=== PATIENT | female | born 1965 | race Two or more races ===

== ENCOUNTER 2017-03-03 16:42 | Inpatient (IN) | payer OTHER ==
[~2017-03-03] VITALS: Ht 157.5 cm; Wt 84.7 kg
[2017-03-03 17:53] LABS: INTER. NORMALIZED RATIO 2.2; PROTHROMBIN TIME 24.8 SEC (10.2-12.9)
[2017-03-03 17:56] LABS: HEMATOCRIT 21.8 % (36.0-46.0); MCH 42.5 PG (29.0-34.0); MCHC 34.9 G/DL (30.0-36.0); MCV 121.8 FL (83-99); NRBC (%) 1.4 /100 WBC (0-0); RBC DIS.WIDTH-SD 73.2 % (39-53); RED BLOOD COUNT 1.79 M/uL (3.80-5.20); WHITE BLOOD COUNT 5.8 K/uL (4.1-10.2)
[2017-03-03 17:56] LABS: PTT 42.6 SEC (25-37)
[2017-03-03 17:57] LABS: CHLORIDE 82 mEq/L (99-109); SODIUM 124 mEq/L (136-147)
[2017-03-03 17:58] LABS: POTASSIUM 2.4 mEq/L (3.7-5.4)
[2017-03-03 17:59] LABS: GLUCOSE 98 mg/dL (70-99)
[2017-03-03 18:01] LABS: ANION GAP 14 MEQ/L (2-14); TOTAL BILIRUBIN 11.1 mg/dL (0.0-1.0)
[2017-03-03 18:03] LABS: ALKALINE PHOSPHATASE 89 IU/L (3-129); GFR ESTIMATE (CALCULATED) > 59 mL/min/
[2017-03-03 18:04] LABS: UREA NITROGEN (BUN) 25 mg/dL (9-23)
[2017-03-03 18:06] LABS: LIPASE 76 U/L (1.0-51.0)
[2017-03-03] MEDS ORDERED: FLONASE16 G1 BOTH NARES (19:08)
[2017-03-03] MEDS ORDERED: COMBIVENT RESPIM4 GM IH (19:08)
[2017-03-03] MEDS ORDERED: LEXAPRO10 MG PO (19:08)
[2017-03-03] MEDS ORDERED: CLARITIN,ALAVAR10 MG PO (19:08)
[2017-03-03 19:19] LABS: IMM.PLATELET FRACTION 4.8 (1-7); MEAN PLAT.VOLUME 10.9 uM^3 (9.5-12.4); PLAT.SUFFICIENCY VERY DECREASED; PLATELET COUNT 50 K/uL (156-360)
[2017-03-03 21:56] VITALS: BP 124/69
[2017-03-03 22:13] VITALS: BP 119/65
[2017-03-03 22:36] VITALS: BP 133/62
[2017-03-03 23:13] VITALS: BP 133/62
[2017-03-04] VITALS (8 sets, daily range): BP systolic 115–134; BP diastolic 55–64
[2017-03-04 09:57] LABS: PROTHROMBIN TIME 22.7 SEC (10.2-12.9)
[2017-03-04 10:01] LABS: PTT 42.6 SEC (25-37)
[2017-03-04 10:04] LABS: HEMATOCRIT 25.2 % (36.0-46.0); MCHC 33.7 G/DL (30.0-36.0); RBC DIS.WIDTH-CV 24.2 % (11.8-14.6); WHITE BLOOD COUNT 5.2 K/uL (4.1-10.2)
[2017-03-04 10:09] LABS: MCV 115.6 FL (83-99); RED BLOOD COUNT 2.18 M/uL (3.80-5.20)
[2017-03-04 10:26] LABS: ANION GAP 10 MEQ/L (2-14); CHLORIDE 88 MEQ/L (99-109); SAMPLE HEMOLYSIS CHECK 0; SAMPLE ICTERIC CHECK 2; SAMPLE LIPEMIA CHECK 0; SODIUM 123 MEQ/L (136-147); TOTAL BILIRUBIN 10.8 MG/DL (0.0-1.0)
[2017-03-04 10:27] LABS: POTASSIUM 3.5 MEQ/L (3.7-5.4)
[2017-03-04 10:32] LABS: ALKALINE PHOSPHATASE 76 IU/L (3-129); GFR ESTIMATE (CALCULATED) > 59 mL/min/; GLUCOSE 84 mg/dL (70-99); UREA NITROGEN (BUN) 21 mg/dL (9-23)
[2017-03-04 11:05] LABS: MEAN PLAT.VOLUME 10.8 uM^3 (9.5-12.4); PLAT.SUFFICIENCY DECREASED; PLATELET COUNT 42 K/uL (156-360)
[2017-03-04 12:52] LABS: HEMATOCRIT 25.1 % (36.0-46.0); MCV 117.3 FL (83-99)
[2017-03-05] VITALS (11 sets, daily range): BP systolic 104–127; BP diastolic 52–68
[2017-03-05 01:01] LABS: HEMATOCRIT 21.2 % (36.0-46.0); MCV 113.4 FL (83-99)
[2017-03-05 05:59] LABS: HEMATOCRIT 25.2 % (36.0-46.0); MCHC 33.7 G/DL (30.0-36.0); MCV 109.6 FL (83-99); NRBC (%) 0.9 /100 WBC (0-0); WHITE BLOOD COUNT 5.4 K/uL (4.1-10.2)
[2017-03-05 06:32] LABS: ANISOCYTOSIS 1+; BASOPHIL COUNT 0.1 K/uL (0-0.1); BURR CELLS 1+; EOSINOPHIL COUNT 0.2 K/uL (0-0.3); IMM.PLATELET FRACTION 3.6 (1-7); IMMATURE GRANULOCYTE (%) 0.9 % (0.0-0.7); IMMATURE GRANULOCYTE COUNT 0.1 K/uL; INSTRUMENT ABS NEUTROPHIL CT 2.2 K/uL; MACROCYTES 3+; MEAN PLAT.VOLUME 10.1 uM^3 (9.5-12.4); MONOCYTE (%) 16.2 % (3-12); MONOCYTE COUNT 0.9 K/uL (0-0.8); NEUTROPHIL (%) 41.3 % (45-76); NEUTROPHIL COUNT 2.2 K/uL (1.8-6.4); PLAT.SUFFICIENCY VERY DECREASED; PLATELET COUNT 34 K/uL (156-360); POLYCHROMASIA 2+
[2017-03-05 10:55] LABS: AHBS INDEX 0.01; HEPATITIS B SURFACE ANTIBODY Nonreactive
[2017-03-05 11:14] LABS: HBSG INDEX 0.22
[2017-03-05 11:15] LABS: ANTI-HEPATITIS A VIRUS (IGM) Nonreactive; HAV INDEX 0.44
[2017-03-05 11:17] LABS: ANTI-HEPATITIS B CORE (IGM) Nonreactive; HBC IgM INDEX 0.23
[2017-03-05 11:25] LABS: HPCA INDEX 11.81
[2017-03-05 12:37] LABS: MCV 109.2 FL (83-99)
[2017-03-05 13:07] LABS: ANION GAP 9 MEQ/L (2-14); CHLORIDE 89 MEQ/L (99-109); GFR ESTIMATE (CALCULATED) > 59 mL/min/; GLUCOSE 172 mg/dL (70-99); POTASSIUM 3.2 MEQ/L (3.7-5.4); SAMPLE HEMOLYSIS CHECK 0; SAMPLE ICTERIC CHECK 2; SAMPLE LIPEMIA CHECK 0; SODIUM 124 MEQ/L (136-147); UREA NITROGEN (BUN) 13 mg/dL (9-23)
[2017-03-05 14:00] LABS: ALKALINE PHOSPHATASE 99 IU/L (3-129); DIRECT BILIRUBIN 5.5 mg/dL (0.0-0.3); TOTAL BILIRUBIN 11.4 MG/DL (0.0-1.0)
[2017-03-05 15:31] LABS: INTER. NORMALIZED RATIO 1.8; PROTHROMBIN TIME 20.7 SEC (10.2-12.9)
[2017-03-05 18:35] LABS: MCV 109.6 FL (83-99)
[2017-03-06 00:57] LABS: HEMATOCRIT 24.7 % (36.0-46.0); MCV 108.8 FL (83-99)
[2017-03-06 04:39] VITALS: BP 114/54
[2017-03-06 05:58] LABS: INTER. NORMALIZED RATIO 1.9; PROTHROMBIN TIME 21.5 SEC (10.2-12.9)
[2017-03-06 06:14] LABS: HEMATOCRIT 25.1 % (36.0-46.0); MCV 110.1 FL (83-99)
[2017-03-06 06:36] LABS: ALKALINE PHOSPHATASE 99 IU/L (3-129); ANION GAP 8 MEQ/L (2-14); CHLORIDE 92 MEQ/L (99-109); GFR ESTIMATE (CALCULATED) > 59 mL/min/; GLUCOSE 122 mg/dL (70-99); POTASSIUM 3.5 MEQ/L (3.7-5.4); SAMPLE HEMOLYSIS CHECK 0; SAMPLE ICTERIC CHECK 2; SAMPLE LIPEMIA CHECK 0; SODIUM 127 MEQ/L (136-147); TOTAL BILIRUBIN 11.2 MG/DL (0.0-1.0); UREA NITROGEN (BUN) 9 mg/dL (9-23)
[2017-03-06 07:31] VITALS: BP 115/74
[2017-03-06 11:21] VITALS: BP 126/58
[2017-03-06 12:24] LABS: HEMATOCRIT 25.9 % (36.0-46.0); MCV 111.2 FL (83-99)
[2017-03-06 15:52] VITALS: BP 107/55
[2017-03-06 18:32] LABS: HEMATOCRIT 25.8 % (36.0-46.0); MCV 111.7 FL (83-99)
[2017-03-06 19:47] VITALS: BP 126/59
[2017-03-07] VITALS (9 sets, daily range): BP systolic 85–133; BP diastolic 45–63
[2017-03-07 08:38] LABS: HEMATOCRIT 22.8 % (36.0-46.0); MCH 40.2 PG (29.0-34.0); MCV 111.8 FL (83-99); MEAN PLAT.VOLUME 10.1 uM^3 (9.5-12.4); NRBC (%) 0.7 /100 WBC (0-0); RED BLOOD COUNT 2.04 M/uL (3.80-5.20); WHITE BLOOD COUNT 8.9 K/uL (4.1-10.2)
[2017-03-07 08:45] LABS: PLATELET COUNT 70 K/uL (156-360)
[2017-03-07 08:53] LABS: INTER. NORMALIZED RATIO 1.7; PROTHROMBIN TIME 19.8 SEC (10.2-12.9)
[2017-03-07 09:14] LABS: ALKALINE PHOSPHATASE 83 IU/L (3-129); ANION GAP 8 MEQ/L (2-14); CHLORIDE 91 MEQ/L (99-109); GFR ESTIMATE (CALCULATED) > 59 mL/min/; GLUCOSE 95 mg/dL (70-99); POTASSIUM 3.6 MEQ/L (3.7-5.4); SAMPLE HEMOLYSIS CHECK 0; SAMPLE ICTERIC CHECK 2; SAMPLE LIPEMIA CHECK 0; SODIUM 125 MEQ/L (136-147); TOTAL BILIRUBIN 10.9 MG/DL (0.0-1.0); UREA NITROGEN (BUN) 12 mg/dL (9-23)
[2017-03-07 09:35] LABS: EOSINOPHIL (%) 1.6 % (0-5); EOSINOPHIL COUNT 0.1 K/uL (0-0.3); IMMATURE GRANULOCYTE (%) 1.3 % (0.0-0.7); IMMATURE GRANULOCYTE COUNT 0.1 K/uL; INSTRUMENT ABS NEUTROPHIL CT 5.3 K/uL; LYMPHOCYTE COUNT 2.3 K/uL (1.0-2.8); MONOCYTE (%) 11.4 % (3-12); NEUTROPHIL (%) 59.1 % (45-76); NEUTROPHIL COUNT 5.3 K/uL (1.8-6.4)
[2017-03-07 10:52] LABS: TYPE OF FLUID PARACENTESIS
[2017-03-07 11:12] LABS: BODY FLUID RBC'S ND /MM^3 (0-100); BODY FLUID WBC'S ND /MM^3 (0-500)
[2017-03-07 11:41] LABS: MONONUCLEAR WBC'S 91 %; POLYNUCLEAR WBC'S 9 % (0-25)
[2017-03-07 11:57] LABS: BODY FLUID PROTEIN < 3.0 G/DL
[2017-03-07 23:55] LABS: POINT-OF-CARE METER ID UU13113725
[2017-03-08] VITALS (46 sets, daily range): BP systolic 70–959; BP diastolic 37–596
[2017-03-08 00:05] LABS: HEMATOCRIT 19.1 % (36.0-46.0); MCH 39.8 PG (29.0-34.0); MCHC 34.6 G/DL (30.0-36.0); MCV 115.1 FL (83-99); NRBC (%) 0.8 /100 WBC (0-0); PLATELET COUNT 84 K/uL (156-360); RBC DIS.WIDTH-CV 25.1 % (11.8-14.6); RED BLOOD COUNT 1.66 M/uL (3.80-5.20)
[2017-03-08 00:06] LABS: INTER. NORMALIZED RATIO 1.9; PROTHROMBIN TIME 21.9 SEC (10.2-12.9)
[2017-03-08 00:08] LABS: PTT 39.2 SEC (25-37)
[2017-03-08 00:22] LABS: POTASSIUM 3.3 mEq/L (3.7-5.4); SODIUM 126 mEq/L (136-147)
[2017-03-08 00:25] LABS: ANION GAP 13 MEQ/L (2-14)
[2017-03-08 00:28] LABS: GFR ESTIMATE (CALCULATED) > 59 mL/min/; UREA NITROGEN (BUN) 14 mg/dL (9-23)
[2017-03-08 00:30] LABS: CHLORIDE 92 mEq/L (99-109); GLUCOSE 119 mg/dL (70-99)
[2017-03-08 01:35] LABS: METH RESISTANT S AUREUS PCR NEGATIVE (NEGATIVE)
[2017-03-08 01:36] LABS: PROBE CHECK PASS; SPECIMEN PROCESSING CONTROL PASS
[2017-03-08 08:53] LABS: INTER. NORMALIZED RATIO 1.3; PROTHROMBIN TIME 15.4 SEC (10.2-12.9)
[2017-03-08 08:56] LABS: PTT 31.3 SEC (25-37)
[2017-03-08 09:03] LABS: ANION GAP 9 MEQ/L (2-14); CHLORIDE 94 MEQ/L (99-109); MAGNESIUM 1.5 mg/dl (1.3-2.7); POTASSIUM 3.4 MEQ/L (3.7-5.4); SAMPLE HEMOLYSIS CHECK 0; SAMPLE ICTERIC CHECK 2; SAMPLE LIPEMIA CHECK 0; SODIUM 129 MEQ/L (136-147)
[2017-03-08 09:08] LABS: GFR ESTIMATE (CALCULATED) > 59 mL/min/; GLUCOSE 123 mg/dL (70-99); UREA NITROGEN (BUN) 14 mg/dL (9-23)
[2017-03-08 10:12] LABS: EOSINOPHIL (%) 1.7 % (0-5); EOSINOPHIL COUNT 0.1 K/uL (0-0.3); HEMATOCRIT 23.9 % (36.0-46.0); IMMATURE GRANULOCYTE (%) 1.3 % (0.0-0.7); IMMATURE GRANULOCYTE COUNT 0.1 K/uL; INSTRUMENT ABS NEUTROPHIL CT 3.6 K/uL; LYMPHOCYTE COUNT 1.5 K/uL (1.0-2.8); MCH 33.3 PG (29.0-34.0); MCHC 34.7 G/DL (30.0-36.0); MONOCYTE (%) 11.1 % (3-12); MONOCYTE COUNT 0.7 K/uL (0-0.8); NEUTROPHIL (%) 60.7 % (45-76); NEUTROPHIL COUNT 3.6 K/uL (1.8-6.4); NRBC (%) 0.5 /100 WBC (0-0); RBC DIS.WIDTH-CV 20.8 % (11.8-14.6); RBC DIS.WIDTH-SD 52.3 % (39-53)
[2017-03-08 10:13] LABS: RED BLOOD COUNT 2.49 M/uL (3.80-5.20)
[2017-03-08 10:51] LABS: MEAN PLAT.VOLUME 11.2 uM^3 (9.5-12.4); PLAT.SUFFICIENCY DECREASED
[2017-03-08 11:10] LABS: POINT-OF-CARE METER ID UU14174217
[2017-03-08 12:03] LABS: PLATELET COUNT 52 K/uL (156-360)
[2017-03-08 12:15] LABS: MITOCHONDRIAL (M2) ANTIBODIES+ <=20.0 U (<=20.0)
[2017-03-08 12:40] LABS: ANTI-SMOOTH MUSCLE (Actin)+ <20 U (<20)
[2017-03-08 18:38] LABS: EOSINOPHIL (%) 2.1 % (0-5); EOSINOPHIL COUNT 0.2 K/uL (0-0.3); HEMATOCRIT 23.3 % (36.0-46.0); IMMATURE GRANULOCYTE (%) 1.1 % (0.0-0.7); IMMATURE GRANULOCYTE COUNT 0.1 K/uL; INSTRUMENT ABS NEUTROPHIL CT 4.6 K/uL; LYMPHOCYTE COUNT 1.6 K/uL (1.0-2.8); MCH 33.6 PG (29.0-34.0); MCHC 35.2 G/DL (30.0-36.0); MCV 95.5 FL (83-99); MONOCYTE COUNT 0.9 K/uL (0-0.8); NEUTROPHIL (%) 62.5 % (45-76); NEUTROPHIL COUNT 4.6 K/uL (1.8-6.4); NRBC (%) 0.3 /100 WBC (0-0); RBC DIS.WIDTH-CV 21.4 % (11.8-14.6); RBC DIS.WIDTH-SD 55.9 % (39-53); RED BLOOD COUNT 2.44 M/uL (3.80-5.20); WHITE BLOOD COUNT 7.3 K/uL (4.1-10.2)
[2017-03-08 19:10] LABS: HEMATOLOGY COMMENT 1 SN; IMM.PLATELET FRACTION 2.2 (1-7); MEAN PLAT.VOLUME 9.3 uM^3 (9.5-12.4); PLAT.SUFFICIENCY DECREASED; PLATELET COUNT 41 K/uL (156-360)
[2017-03-08 22:07] LABS: HCV RNA (IU/mL) 3740 IU/mL (<15)
[2017-03-09] VITALS (15 sets, daily range): BP systolic 105–131; BP diastolic 59–74
[2017-03-09 05:23] LABS: BASOPHIL COUNT 0.1 K/uL (0-0.1); EOSINOPHIL (%) 3.1 % (0-5); EOSINOPHIL COUNT 0.2 K/uL (0-0.3); HEMATOCRIT 23.9 % (36.0-46.0); IMMATURE GRANULOCYTE (%) 0.9 % (0.0-0.7); IMMATURE GRANULOCYTE COUNT 0.1 K/uL; INSTRUMENT ABS NEUTROPHIL CT 2.9 K/uL; LYMPHOCYTE COUNT 1.7 K/uL (1.0-2.8); MCHC 34.7 G/DL (30.0-36.0); MONOCYTE (%) 14.7 % (3-12); MONOCYTE COUNT 0.8 K/uL (0-0.8); NEUTROPHIL (%) 51.1 % (45-76); NEUTROPHIL COUNT 2.9 K/uL (1.8-6.4); NRBC (%) 0.5 /100 WBC (0-0); RBC DIS.WIDTH-CV 22.3 % (11.8-14.6); RBC DIS.WIDTH-SD 58.7 % (39-53); RED BLOOD COUNT 2.44 M/uL (3.80-5.20); WHITE BLOOD COUNT 5.7 K/uL (4.1-10.2)
[2017-03-09 05:50] LABS: ANION GAP 6 MEQ/L (2-14); CHLORIDE 99 MEQ/L (99-109); GFR ESTIMATE (CALCULATED) > 59 mL/min/; GLUCOSE 94 mg/dL (70-99); POTASSIUM 3.5 MEQ/L (3.7-5.4); SAMPLE HEMOLYSIS CHECK 0; SAMPLE ICTERIC CHECK 2; SAMPLE LIPEMIA CHECK 0; SODIUM 131 MEQ/L (136-147); UREA NITROGEN (BUN) 12 mg/dL (9-23)
[2017-03-09 05:51] LABS: IMM.PLATELET FRACTION 2.5 (1-7); MEAN PLAT.VOLUME 9.9 uM^3 (9.5-12.4); PLAT.SUFFICIENCY VERY DECREASED; PLATELET COUNT 35 K/uL (156-360)
[2017-03-09 08:39] LABS: HCV RNA (LOG IU/mL) 3.57 (<1.18)
[2017-03-09 10:44] LABS: ALKALINE PHOSPHATASE 75 IU/L (3-129); DIRECT BILIRUBIN 3.5 mg/dL (0.0-0.3); MAGNESIUM 1.5 mg/dl (1.3-2.7)
[2017-03-09 10:45] LABS: TOTAL BILIRUBIN 7.5 MG/DL (0.0-1.0)
[2017-03-09 19:53] LABS: HEMATOCRIT 24.7 % (36.0-46.0); MCH 32.9 PG (29.0-34.0); MCHC 33.6 G/DL (30.0-36.0); RBC DIS.WIDTH-CV 22.2 % (11.8-14.6); RBC DIS.WIDTH-SD 63.7 % (39-53); RED BLOOD COUNT 2.52 M/uL (3.80-5.20); WHITE BLOOD COUNT 6.2 K/uL (4.1-10.2)
[2017-03-09 20:19] LABS: IMM.PLATELET FRACTION 2.2 (1-7); MEAN PLAT.VOLUME 10.2 uM^3 (9.5-12.4); PLAT.SUFFICIENCY VERY DECREASED; PLATELET COUNT 40 K/uL (156-360)
[2017-03-10] VITALS (14 sets, daily range): BP systolic 99–115; BP diastolic 47–60
[2017-03-10 05:40] LABS: EOSINOPHIL (%) 2.8 % (0-5); EOSINOPHIL COUNT 0.2 K/uL (0-0.3); HEMATOCRIT 21.5 % (36.0-46.0); IMMATURE GRANULOCYTE (%) 0.7 % (0.0-0.7); INSTRUMENT ABS NEUTROPHIL CT 2.7 K/uL; LYMPHOCYTE COUNT 2.2 K/uL (1.0-2.8); MCH 34.6 PG (29.0-34.0); MCHC 34.9 G/DL (30.0-36.0); MCV 99.1 FL (83-99); MONOCYTE (%) 15.7 % (3-12); NEUTROPHIL (%) 44.6 % (45-76); NEUTROPHIL COUNT 2.7 K/uL (1.8-6.4); RBC DIS.WIDTH-CV 22.9 % (11.8-14.6); RED BLOOD COUNT 2.17 M/uL (3.80-5.20); WHITE BLOOD COUNT 6.1 K/uL (4.1-10.2)
[2017-03-10 06:03] LABS: ALKALINE PHOSPHATASE 66 IU/L (3-129); ANION GAP 5 MEQ/L (2-14); CHLORIDE 102 MEQ/L (99-109); GFR ESTIMATE (CALCULATED) > 59 mL/min/; GLUCOSE 109 mg/dL (70-99); POTASSIUM 3.7 MEQ/L (3.7-5.4); SAMPLE HEMOLYSIS CHECK 0; SAMPLE ICTERIC CHECK 2; SAMPLE LIPEMIA CHECK 0; SODIUM 131 MEQ/L (136-147); TOTAL BILIRUBIN 6.8 MG/DL (0.0-1.0); UREA NITROGEN (BUN) 10 mg/dL (9-23)
[2017-03-10 06:27] LABS: IMM.PLATELET FRACTION 2.2 (1-7); MEAN PLAT.VOLUME 10.2 uM^3 (9.5-12.4); PLAT.SUFFICIENCY VERY DECREASED; PLATELET COUNT 37 K/uL (156-360)
[2017-03-10 06:46] LABS: ANION GAP 5 MEQ/L (2-14); CHLORIDE 101 MEQ/L (99-109); GFR ESTIMATE (CALCULATED) > 59 mL/min/; GLUCOSE 105 mg/dL (70-99); MAGNESIUM 1.3 mg/dl (1.3-2.7); POTASSIUM 3.7 MEQ/L (3.7-5.4); SAMPLE HEMOLYSIS CHECK 0; SAMPLE ICTERIC CHECK 2; SAMPLE LIPEMIA CHECK 0; SODIUM 129 MEQ/L (136-147); UREA NITROGEN (BUN) 10 mg/dL (9-23)
[2017-03-10 08:17] LABS: BASE EXCESS -0.3 mEq/L (-3 to +3); BICARBONATE 22.6 mEq/L (22-26); CARBOXY HGB 3.2 % (0-5); PCO2 29 mm Hg (35-45); PO2 66 mm Hg (80-100); SITE LR
[2017-03-10 08:18] LABS: COMMENTS - BLOOD GASES A+C+; TOTAL RESP RATE 14 resp/min
[2017-03-10 18:25] LABS: HEMATOCRIT 20.2 % (36.0-46.0); MCV 99.5 FL (83-99)
[2017-03-11 00:51] LABS: HEMATOCRIT 22.6 % (36.0-46.0)
[2017-03-11 00:57] LABS: MCV 94.2 FL (83-99)
[2017-03-11 05:53] LABS: BASOPHIL COUNT 0.1 K/uL (0-0.1); EOSINOPHIL (%) 3.4 % (0-5); EOSINOPHIL COUNT 0.2 K/uL (0-0.3); HEMATOCRIT 23.4 % (36.0-46.0); IMMATURE GRANULOCYTE (%) 0.3 % (0.0-0.7); INSTRUMENT ABS NEUTROPHIL CT 2.8 K/uL; LYMPHOCYTE COUNT 2.1 K/uL (1.0-2.8); MCH 31.5 PG (29.0-34.0); MCHC 33.3 G/DL (30.0-36.0); MCV 94.4 FL (83-99); MONOCYTE COUNT 0.9 K/uL (0-0.8); NEUTROPHIL (%) 45.8 % (45-76); NEUTROPHIL COUNT 2.8 K/uL (1.8-6.4); RBC DIS.WIDTH-CV 20.3 % (11.8-14.6); RBC DIS.WIDTH-SD 48.7 % (39-53); RED BLOOD COUNT 2.48 M/uL (3.80-5.20); WHITE BLOOD COUNT 6.1 K/uL (4.1-10.2)
[2017-03-11 05:58] LABS: PLATELET COUNT 54 K/uL (156-360)
[2017-03-11 06:03] LABS: INTER. NORMALIZED RATIO 1.6; PROTHROMBIN TIME 18.9 SEC (10.2-12.9)
[2017-03-11 06:30] LABS: ALKALINE PHOSPHATASE 64 IU/L (3-129); ANION GAP 6 MEQ/L (2-14); CHLORIDE 103 MEQ/L (99-109); GFR ESTIMATE (CALCULATED) > 59 mL/min/; GLUCOSE 108 mg/dL (70-99); POTASSIUM 3.8 MEQ/L (3.7-5.4); SAMPLE HEMOLYSIS CHECK 0; SAMPLE ICTERIC CHECK 2; SAMPLE LIPEMIA CHECK 0; SODIUM 132 MEQ/L (136-147); TOTAL BILIRUBIN 7.3 MG/DL (0.0-1.0); UREA NITROGEN (BUN) 11 mg/dL (9-23)
[2017-03-11 07:49] VITALS: BP 109/52
[2017-03-11 16:46] VITALS: BP 112/56
[2017-03-11 19:30] VITALS: BP 110/55
[2017-03-11 20:05] LABS: HEMATOCRIT 22.6 % (36.0-46.0); MCV 96.6 FL (83-99)
[2017-03-12] VITALS (11 sets, daily range): BP systolic 92–112; BP diastolic 50–56
[2017-03-12 06:46] LABS: EOSINOPHIL COUNT 0.2 K/uL (0-0.3); HEMATOCRIT 20.4 % (36.0-46.0); IMMATURE GRANULOCYTE (%) 0.5 % (0.0-0.7); INSTRUMENT ABS NEUTROPHIL CT 2.6 K/uL; MCH 33.3 PG (29.0-34.0); MCHC 34.3 G/DL (30.0-36.0); MCV 97.1 FL (83-99); MONOCYTE (%) 15.7 % (3-12); MONOCYTE COUNT 0.9 K/uL (0-0.8); NEUTROPHIL (%) 44.9 % (45-76); NEUTROPHIL COUNT 2.6 K/uL (1.8-6.4); RBC DIS.WIDTH-CV 21.7 % (11.8-14.6); RBC DIS.WIDTH-SD 57.1 % (39-53); WHITE BLOOD COUNT 5.8 K/uL (4.1-10.2)
[2017-03-12 07:01] LABS: INTER. NORMALIZED RATIO 1.6; PROTHROMBIN TIME 18.1 SEC (10.2-12.9)
[2017-03-12 07:16] LABS: ANION GAP 7 MEQ/L (2-14); CHLORIDE 103 MEQ/L (99-109); GFR ESTIMATE (CALCULATED) > 59 mL/min/; GLUCOSE 111 mg/dL (70-99); POTASSIUM 3.9 MEQ/L (3.7-5.4); SAMPLE HEMOLYSIS CHECK 0; SAMPLE ICTERIC CHECK 2; SAMPLE LIPEMIA CHECK 0; SODIUM 132 MEQ/L (136-147); UREA NITROGEN (BUN) 10 mg/dL (9-23)
[2017-03-12 07:55] LABS: ANISOCYTOSIS 2+; BURR CELLS 1+; HEMATOLOGY COMMENT 1 SN; IMM.PLATELET FRACTION 1.9 (1-7); MACROCYTES 2+; MEAN PLAT.VOLUME 10.1 uM^3 (9.5-12.4); PLAT.SUFFICIENCY DECREASED; PLATELET COUNT 40 K/uL (156-360); POIKILOCYTOSIS 1+; POLYCHROMASIA 1+
[2017-03-12 19:47] LABS: HEMATOCRIT 17.9 % (36.0-46.0); MCV 97.8 FL (83-99)
[2017-03-13] VITALS (13 sets, daily range): BP systolic 98–140; BP diastolic 50–86
[2017-03-13 08:04] LABS: BASOPHIL COUNT 0.1 K/uL (0-0.1); EOSINOPHIL COUNT 0.2 K/uL (0-0.3); HEMATOCRIT 28.2 % (36.0-46.0); IMMATURE GRANULOCYTE COUNT 0.1 K/uL; INSTRUMENT ABS NEUTROPHIL CT 2.6 K/uL; LYMPHOCYTE COUNT 2.2 K/uL (1.0-2.8); MCH 33.3 PG (29.0-34.0); MCHC 33.7 G/DL (30.0-36.0); MCV 98.9 FL (83-99); MONOCYTE (%) 15.2 % (3-12); MONOCYTE COUNT 0.9 K/uL (0-0.8); NEUTROPHIL (%) 42.9 % (45-76); NEUTROPHIL COUNT 2.6 K/uL (1.8-6.4); NRBC (%) 0.3 /100 WBC (0-0); RBC DIS.WIDTH-CV 19.8 % (11.8-14.6); WHITE BLOOD COUNT 6.1 K/uL (4.1-10.2)
[2017-03-13 08:06] LABS: RED BLOOD COUNT 2.85 M/uL (3.80-5.20)
[2017-03-13 08:15] LABS: ANION GAP 8 MEQ/L (2-14); CHLORIDE 102 MEQ/L (99-109); GFR ESTIMATE (CALCULATED) > 59 mL/min/; GLUCOSE 95 mg/dL (70-99); POTASSIUM 3.8 MEQ/L (3.7-5.4); SAMPLE HEMOLYSIS CHECK 0; SAMPLE ICTERIC CHECK 2; SAMPLE LIPEMIA CHECK 0; SODIUM 130 MEQ/L (136-147); UREA NITROGEN (BUN) 9 mg/dL (9-23)
[2017-03-13 08:42] LABS: IMM.PLATELET FRACTION 2.4 (1-7); MEAN PLAT.VOLUME 10.4 uM^3 (9.5-12.4); PLATELET COUNT 31 K/uL (156-360)
[2017-03-13 09:06] LABS: INTER. NORMALIZED RATIO 1.6
[2017-03-14 04:22] VITALS: BP 120/56
[2017-03-14 06:32] LABS: BASOPHIL COUNT 0.1 K/uL (0-0.1); EOSINOPHIL (%) 2.3 % (0-5); EOSINOPHIL COUNT 0.1 K/uL (0-0.3); HEMATOCRIT 28.1 % (36.0-46.0); IMMATURE GRANULOCYTE (%) 0.7 % (0.0-0.7); INSTRUMENT ABS NEUTROPHIL CT 2.6 K/uL; LYMPHOCYTE COUNT 2.1 K/uL (1.0-2.8); MCH 32.5 PG (29.0-34.0); MCHC 33.1 G/DL (30.0-36.0); MCV 98.3 FL (83-99); MONOCYTE (%) 11.5 % (3-12); MONOCYTE COUNT 0.7 K/uL (0-0.8); NEUTROPHIL (%) 46.6 % (45-76); NEUTROPHIL COUNT 2.6 K/uL (1.8-6.4); RBC DIS.WIDTH-CV 19.9 % (11.8-14.6); RBC DIS.WIDTH-SD 59.9 % (39-53); RED BLOOD COUNT 2.86 M/uL (3.80-5.20); WHITE BLOOD COUNT 5.7 K/uL (4.1-10.2)
[2017-03-14 07:00] VITALS: BP 109/60
[2017-03-14 07:47] VITALS: BP 109/60
[2017-03-14 10:15] LABS: IMM.PLATELET FRACTION 3.9 (1-7); MEAN PLAT.VOLUME 10.6 uM^3 (9.5-12.4); PLATELET COUNT 30 K/uL (156-360)
[2017-03-14 14:46] VITALS: BP 107/56
[2017-03-14 15:45] VITALS: BP 115/59
[2017-03-14 23:24] VITALS: BP 108/58
[2017-03-15 06:26] LABS: HEMATOCRIT 26.9 % (36.0-46.0); MCHC 33.8 G/DL (30.0-36.0); MCV 100.4 FL (83-99); RBC DIS.WIDTH-CV 21.2 % (11.8-14.6); RED BLOOD COUNT 2.68 M/uL (3.80-5.20); WHITE BLOOD COUNT 5.1 K/uL (4.1-10.2)
[2017-03-15 06:32] LABS: INTER. NORMALIZED RATIO 1.7; PROTHROMBIN TIME 19.9 SEC (10.2-12.9)
[2017-03-15 06:56] LABS: ALKALINE PHOSPHATASE 92 IU/L (3-129); ANION GAP 7 MEQ/L (2-14); BASOPHIL COUNT 0.1 K/uL (0-0.1); CHLORIDE 103 MEQ/L (99-109); EOSINOPHIL (%) 2.8 % (0-5); EOSINOPHIL COUNT 0.1 K/uL (0-0.3); GFR ESTIMATE (CALCULATED) > 59 mL/min/; GLUCOSE 95 mg/dL (70-99); IMMATURE GRANULOCYTE (%) 0.6 % (0.0-0.7); INSTRUMENT ABS NEUTROPHIL CT 2.1 K/uL; LYMPHOCYTE COUNT 2.1 K/uL (1.0-2.8); MONOCYTE (%) 11.7 % (3-12); MONOCYTE COUNT 0.6 K/uL (0-0.8); NEUTROPHIL (%) 42.1 % (45-76); NEUTROPHIL COUNT 2.1 K/uL (1.8-6.4); PLAT.SUFFICIENCY VERY DECREASED; POTASSIUM 3.9 MEQ/L (3.7-5.4); SAMPLE HEMOLYSIS CHECK 0; SAMPLE ICTERIC CHECK 1; SAMPLE LIPEMIA CHECK 0; SODIUM 134 MEQ/L (136-147); UREA NITROGEN (BUN) 8 mg/dL (9-23)
[2017-03-15 06:57] LABS: TOTAL BILIRUBIN 5.1 MG/DL (0.0-1.0)
[2017-03-15 07:51] LABS: MEAN PLAT.VOLUME 10.7 uM^3 (9.5-12.4); PLATELET COUNT 27 K/uL (156-360)
[2017-03-15 08:47] VITALS: BP 110/57
[2017-03-15 10:52] LABS: IMM.PLATELET FRACTION 3.3 (1-7)
[2017-03-15 16:30] VITALS: BP 108/59
[2017-03-15 17:07] VITALS: BP 107/51
[2017-03-15 21:23] VITALS: BP 120/72
[2017-03-16 03:31] VITALS: BP 110/61
[2017-03-16 08:27] VITALS: BP 119/59
[2017-03-16 08:53] LABS: EOSINOPHIL (%) 2.8 % (0-5); EOSINOPHIL COUNT 0.1 K/uL (0-0.3); HEMATOCRIT 25.3 % (36.0-46.0); IMMATURE GRANULOCYTE (%) 0.6 % (0.0-0.7); LYMPHOCYTE COUNT 1.1 K/uL (1.0-2.8); MCH 33.3 PG (29.0-34.0); MCHC 32.8 G/DL (30.0-36.0); MCV 101.6 FL (83-99); MONOCYTE (%) 10.4 % (3-12); MONOCYTE COUNT 0.4 K/uL (0-0.8); NEUTROPHIL (%) 55.3 % (45-76); RBC DIS.WIDTH-CV 21.4 % (11.8-14.6); RBC DIS.WIDTH-SD 73.7 % (39-53); RED BLOOD COUNT 2.49 M/uL (3.80-5.20); WHITE BLOOD COUNT 3.6 K/uL (4.1-10.2)
[2017-03-16 09:15] LABS: IMM.PLATELET FRACTION 3.2 (1-7); MEAN PLAT.VOLUME 11.4 uM^3 (9.5-12.4); PLAT.SUFFICIENCY VERY DECREASED; PLATELET COUNT 25 K/uL (156-360)
[2017-03-16 11:45] VITALS: BP 115/62
[2017-03-16 15:48] VITALS: BP 107/57
[2017-03-16 20:15] VITALS: BP 119/57
[2017-03-17] VITALS (8 sets, daily range): BP systolic 97–177; BP diastolic 47–69
[2017-03-17 06:44] LABS: EOSINOPHIL (%) 2.3 % (0-5); EOSINOPHIL COUNT 0.1 K/uL (0-0.3); HEMATOCRIT 24.7 % (36.0-46.0); IMMATURE GRANULOCYTE (%) 0.2 % (0.0-0.7); INSTRUMENT ABS NEUTROPHIL CT 2.9 K/uL; LYMPHOCYTE COUNT 1.6 K/uL (1.0-2.8); MCH 34.3 PG (29.0-34.0); MCV 100.8 FL (83-99); MONOCYTE (%) 9.5 % (3-12); MONOCYTE COUNT 0.5 K/uL (0-0.8); NEUTROPHIL (%) 55.9 % (45-76); NEUTROPHIL COUNT 2.9 K/uL (1.8-6.4); RBC DIS.WIDTH-CV 21.6 % (11.8-14.6); RBC DIS.WIDTH-SD 75.3 % (39-53); RED BLOOD COUNT 2.45 M/uL (3.80-5.20); WHITE BLOOD COUNT 5.2 K/uL (4.1-10.2)
[2017-03-17 07:08] LABS: ALKALINE PHOSPHATASE 77 IU/L (3-129); ANION GAP 6 MEQ/L (2-14); CHLORIDE 100 MEQ/L (99-109); GFR ESTIMATE (CALCULATED) > 59 mL/min/; GLUCOSE 105 mg/dL (70-99); SAMPLE HEMOLYSIS CHECK 0; SAMPLE ICTERIC CHECK 1; SAMPLE LIPEMIA CHECK 0; SODIUM 131 MEQ/L (136-147); TOTAL BILIRUBIN 4.3 MG/DL (0.0-1.0); UREA NITROGEN (BUN) 5 mg/dL (9-23)
[2017-03-17 07:48] LABS: IMM.PLATELET FRACTION 3.5 (1-7); MEAN PLAT.VOLUME 10.5 uM^3 (9.5-12.4)
[2017-03-17 08:24] LABS: PLATELET COUNT 21 K/uL (156-360)
[2017-03-18 06:20] LABS: EOSINOPHIL (%) 2.3 % (0-5); EOSINOPHIL COUNT 0.1 K/uL (0-0.3); HEMATOCRIT 24.7 % (36.0-46.0); IMMATURE GRANULOCYTE (%) 0.4 % (0.0-0.7); INSTRUMENT ABS NEUTROPHIL CT 2.7 K/uL; LYMPHOCYTE COUNT 1.8 K/uL (1.0-2.8); MCH 33.5 PG (29.0-34.0); MCHC 33.2 G/DL (30.0-36.0); MCV 100.8 FL (83-99); MONOCYTE (%) 8.9 % (3-12); MONOCYTE COUNT 0.5 K/uL (0-0.8); NEUTROPHIL (%) 52.1 % (45-76); NEUTROPHIL COUNT 2.7 K/uL (1.8-6.4); RBC DIS.WIDTH-CV 21.3 % (11.8-14.6); RBC DIS.WIDTH-SD 76.5 % (39-53); RED BLOOD COUNT 2.45 M/uL (3.80-5.20); WHITE BLOOD COUNT 5.2 K/uL (4.1-10.2)
[2017-03-18 06:41] LABS: ANION GAP 8 MEQ/L (2-14); CHLORIDE 100 MEQ/L (99-109); GFR ESTIMATE (CALCULATED) > 59 mL/min/; GLUCOSE 113 mg/dL (70-99); POTASSIUM 3.7 MEQ/L (3.7-5.4); SAMPLE HEMOLYSIS CHECK 0; SAMPLE ICTERIC CHECK 1; SAMPLE LIPEMIA CHECK 0; SODIUM 135 MEQ/L (136-147); UREA NITROGEN (BUN) 5 mg/dL (9-23)
[2017-03-18 07:04] LABS: IMM.PLATELET FRACTION 2.5 (1-7); MEAN PLAT.VOLUME 10.6 uM^3 (9.5-12.4); PLAT.SUFFICIENCY DECREASED
[2017-03-18 07:14] LABS: PLATELET COUNT 42 K/uL (156-360)
[2017-03-18 07:50] VITALS: BP 135/69
[2017-03-18] MEDS ORDERED: Thiamine,Vitamin B1 PO (14:03)
[2017-03-18] MEDS ORDERED: PROTONIX40 MG PO (14:03)
[2017-03-18] MEDS ORDERED: ALDACTONE100 MG PO (14:03)
[2017-03-18] MEDS ORDERED: FOLIC ACID1 MG PO (14:03)
[2017-03-18] MEDS ORDERED: FUROSEMIDE40 MG PO (14:03)
[2017-03-18] MEDS ORDERED: BENTYL20 MG PO (14:05)
[2017-03-18] MEDS ORDERED: KRISTALOSE10 GM PO (14:05)
== END 2017-03-18 15:31 | disposition home or self-care (01) | DRG 987 ==
LOC: EME 16:42 → EDOF 20:05 → 4WEST 20:05 → 5EAST 20:05 → ENRESERV 20:23 → 5EAST 22:28 → ENRESERV 03-07 23:35 → 4WEST 03-07 23:37 → ENRESERV 03-09 13:30 → 5EAST 03-09 16:26
PROVIDERS: Emergency Medicine; Internal Medicine; Internal Medicine Gastroenterology; Physician Assistant; Specialist; Surgery
DX: K70.31 Alcoholic cirrhosis of liver with ascites (principal); B19.21 Unspecified viral hepatitis C with hepatic coma; K64.8 Other hemorrhoids; D64.9 Anemia, unspecified; R57.8 Other shock; E87.2 Acidosis; I85.00 Esophageal varices without bleeding; K76.6 Portal hypertension; E87.1 Hypo-osmolality and hyponatremia; D69.59 Other secondary thrombocytopenia; D68.4 Acquired coagulation factor deficiency; K70.11 Alcoholic hepatitis with ascites; E86.0 Dehydration; E87.6 Hypokalemia; F10.20 Alcohol dependence, uncomplicated; B18.2 Chronic viral hepatitis C; E86.1 Hypovolemia; K31.89 Other diseases of stomach and duodenum; K63.5 Polyp of colon; R79.89 Other specified abnormal findings of blood chemistry; R40.2410 Glasgow coma scale score 13-15, unspecified time; F41.9 Anxiety disorder, unspecified; F32.9 Major depressive disorder, single episode, unspecified; F17.200 Nicotine dependence, unspecified, uncomplicated; E66.9 Obesity, unspecified; Z68.34 Body mass index [BMI] 34.0-34.9, adult; Z90.710 Acquired absence of both cervix and uterus
CPT/HCPCS: 36600; 49083; 76705; 80048; 80048 91; 80053; 80074; 80076; 82140; 82248; 82330; 82803; 82948; 83516 90; 83605; 83690; 83735; 84100; 84157; 85014; 85018; 85025; 85025 91; 85027; 85610; 85730; 86038; 86256 90; 86706; 86850; 86900; 86901; 86920; 87040; 87522 90; 87641; 88304; 89051; 94760; 94799; 97530 GO; 97530 GP; 99202; 99281; 99285; C9113; G0480; J0131; J0610; J0696; J1170; J1940; J2060; J2250; J2354; J2405; J3010; J3430; J3480; J7030; J7040; J7050; P9016; P9017; P9035; P9037; P9047

== ENCOUNTER 2017-04-30 07:24 | Inpatient (IN) | payer OTHER ==
[2017-04-30] VITALS (13 sets, daily range): BP systolic 102–142; BP diastolic 54–77
[~2017-04-30] VITALS: Ht 157.5 cm; Wt 60.4 kg
[~2017-04-30 07:24] MED LIST: ALDACTONE100 MG PO; BENTYL20 MG PO; CLARITIN,ALAVAR10 MG PO; COMBIVENT RESPIM4 GM IH; FLONASE16 G1 BOTH NARES; FOLIC ACID1 MG PO; FUROSEMIDE40 MG PO; KRISTALOSE10 GM PO; LEXAPRO10 MG PO; PROTONIX40 MG PO; Thiamine,Vitamin B1 PO
[2017-04-30 09:19] LABS: HEMATOCRIT 15.5 % (36.0-46.0); MCH 40.3 PG (29.0-34.0); MCHC 33.5 G/DL (30.0-36.0); MCV 120.2 FL (83-99); NRBC (%) 0.5 /100 WBC (0-0); RBC DIS.WIDTH-CV 23.2 % (11.8-14.6); RBC DIS.WIDTH-SD 100.9 % (39-53); RED BLOOD COUNT 1.29 M/uL (3.80-5.20); WHITE BLOOD COUNT 5.9 K/uL (4.1-10.2)
[2017-04-30 09:20] LABS: HEMOGLOBIN 5.2 G/DL (11.9-15.5)
[2017-04-30 09:24] LABS: ALBUMIN 2.1 g/dL (3.2-4.8); CHLORIDE 99 mEq/L (99-109); POTASSIUM 3.4 mEq/L (3.7-5.4); SODIUM 130 mEq/L (136-147)
[2017-04-30 09:25] LABS: AMYLASE 49 IU/L (1-118)
[2017-04-30 09:26] LABS: GLUCOSE 114 mg/dL (70-99)
[2017-04-30 09:27] LABS: TOTAL PROTEIN 6.8 g/dL (6.4-8.3)
[2017-04-30 09:28] LABS: TOTAL BILIRUBIN 7.8 mg/dL (0.0-1.0)
[2017-04-30 09:29] LABS: SERUM ETHYL ALCOHOL 37 mg/dL
[2017-04-30 09:30] LABS: ALKALINE PHOSPHATASE 104 IU/L (3-129); CREATININE 1.2 mg/dL (0.6-1.3); GFR ESTIMATE (CALCULATED) 51 mL/min/
[2017-04-30 09:31] LABS: UREA NITROGEN (BUN) 29 mg/dL (9-23)
[2017-04-30 09:32] LABS: AST (GOT) 70 IU/L (2-34)
[2017-04-30 09:33] LABS: ALT (GPT) 31 IU/L (3-49)
[2017-04-30 09:34] LABS: LIPASE 90 U/L (1.0-51.0)
[2017-04-30 09:53] LABS: MAGNESIUM 1.2 mg/dL (1.3-2.7)
[2017-04-30 09:58] LABS: PHOSPHORUS 2.7 mg/dL (2.5-4.9)
[2017-04-30] MEDS ORDERED: FOLIC ACID1 MG PO (10:07)
[2017-04-30] MEDS ORDERED: ALDACTONE100 MG PO (10:08)
[2017-04-30 10:09] LABS: IMM.PLATELET FRACTION 1.9 (1-7); PLAT.SUFFICIENCY DECREASED; PLATELET COUNT 46 K/uL (156-360)
[2017-04-30] MEDS ORDERED: LASIX40 MG PO (10:09)
[2017-04-30] MEDS ORDERED: GENERLAC10 GM/15 M PO (10:10)
[2017-04-30] MEDS ORDERED: PROTONIX40 MG PO (10:11)
[2017-04-30] MEDS ORDERED: BENTYL20 MG PO (10:11)
[2017-04-30] MEDS ORDERED: B-1100 MG PO (10:13)
[2017-04-30 13:07] LABS: INTER. NORMALIZED RATIO 1.6
[2017-04-30 13:10] LABS: PTT 37.5 SEC (25-37)
[2017-04-30 14:01] LABS: APPEARANCE CLOUDY ((CLEAR)); BILIRUBIN MODERATE; BLOOD MODERATE; COLOR AMBER ((YELLOW)); GLUCOSE (STRIP) NEGATIVE; KETONES NEGATIVE; LEUKOCYTES NEGATIVE; NITRITE POSITIVE; PROTEIN (STRIP) 30; SPECIFIC GRAVITY 1.045 (1.000-1.030)
[2017-04-30 14:15] LABS: AMPHETAMINE NEGATIVE (500 ng/mL); BARBITURATES NEGATIVE (200 ng/mL); BENZODIAZEPINES NEGATIVE (150 ng/mL); BUPRENORPHINE NEGATIVE (10 ng/mL); COCAINE NEGATIVE (150 ng/mL); METHADONE NEGATIVE (200 ng/mL); METHAMPHETAMINE NEGATIVE (500 ng/mL); OPIATES (MORPHINE) NEGATIVE (100 ng/mL); OXYCODONE NEGATIVE (100 ng/mL); PHENCYCLIDINE NEGATIVE (25 ng/mL); PROPOXYPHENE NEGATIVE (300 ng/mL); THC CANNABINOIDS NEGATIVE (50 ng/mL); TRICYCLIC ANTIDEPRESSANTS NEGATIVE (300 ng/mL)
[2017-04-30 14:21] LABS: BACTERIA 3+ /HPF; HYALINE CASTS 0-5 /LPF
[2017-04-30 14:22] LABS: EPITHELIAL CELLS 2+ /HPF; MUCUS NONE SEEN /LPF; UCUL ADDED? YES
[2017-04-30 14:51] LABS: ICTOTEST NEGATIVE
[2017-05-01] VITALS (12 sets, daily range): BP systolic 87–128; BP diastolic 49–79
[2017-05-01 06:00] LABS: BASOPHIL COUNT 0.1 K/uL (0-0.1); EOSINOPHIL (%) 7.4 % (0-5); EOSINOPHIL COUNT 0.5 K/uL (0-0.3); HEMATOCRIT 23.7 % (36.0-46.0); IMM.PLATELET FRACTION 1.6 (1-7); IMMATURE GRANULOCYTE (%) 1.5 % (0.0-0.7); LYMPHOCYTE (%) 26.7 % (15-42); LYMPHOCYTE COUNT 1.6 K/uL (1.0-2.8); MCH 34.8 PG (29.0-34.0); MCHC 34.2 G/DL (30.0-36.0); MONOCYTE (%) 8.4 % (3-12); MONOCYTE COUNT 0.5 K/uL (0-0.8); NEUTROPHIL COUNT 3.4 K/uL (1.8-6.4); NRBC (%) 0.8 /100 WBC (0-0); PLATELET COUNT 41 K/uL (156-360); RBC DIS.WIDTH-CV 27.1 % (11.8-14.6); RBC DIS.WIDTH-SD 88.2 % (39-53); WHITE BLOOD COUNT 6.1 K/uL (4.1-10.2)
[2017-05-01 06:02] LABS: HEMOGLOBIN 8.1 G/DL (11.9-15.5); INTER. NORMALIZED RATIO 1.7; MCV 101.7 FL (83-99); RED BLOOD COUNT 2.33 M/uL (3.80-5.20)
[2017-05-01 06:29] LABS: ALBUMIN 2.2 G/DL (3.2-4.8); ALKALINE PHOSPHATASE 82 IU/L (3-129); ALT (GPT) 27 IU/L (3-49); AST (GOT) 61 IU/L (2-34); CHLORIDE 99 MEQ/L (99-109); CREATININE 1.6 MG/DL (0.6-1.3); GFR ESTIMATE (CALCULATED) 36 mL/min/; GLUCOSE 118 mg/dL (70-99); SODIUM 130 MEQ/L (136-147); TOTAL BILIRUBIN 8.5 MG/DL (0.0-1.0); TOTAL PROTEIN 6.4 G/DL (6.4-8.3); UREA NITROGEN (BUN) 33 mg/dL (9-23)
[2017-05-01 06:31] LABS: POTASSIUM 4.7 MEQ/L (3.7-5.4)
[2017-05-01 17:48] LABS: TYPE OF FLUID PARACENTESIS
[2017-05-01 18:28] LABS: APPEARANCE SL. HAZY-YELLOW; BODY FLUID EOSINOPHILS 0 % (0-25); BODY FLUID RBC'S < 1000 /MM^3 (0-100); BODY FLUID WBC'S 129 /MM^3 (0-500); COMMENT MANY MESOTHELIAL CELLS NOTED; MONONUCLEAR WBC'S 84 %; POLYNUCLEAR WBC'S 16 % (0-25)
[2017-05-01 18:41] LABS: BODY FLUID AMYLASE 10 U/L; BODY FLUID LDH 60 IU/L
[2017-05-01 18:42] LABS: BODY FLUID PROTEIN < 3 G/DL
[2017-05-01 20:04] LABS: BASOPHIL (%) 0.4 % (0-1); EOSINOPHIL (%) 9.3 % (0-5); EOSINOPHIL COUNT 0.5 K/uL (0-0.3); HEMATOCRIT 24.3 % (36.0-46.0); HEMOGLOBIN 8.3 G/DL (11.9-15.5); IMMATURE GRANULOCYTE (%) 1.5 % (0.0-0.7); LYMPHOCYTE (%) 29.3 % (15-42); LYMPHOCYTE COUNT 1.6 K/uL (1.0-2.8); MCH 35.5 PG (29.0-34.0); MCHC 34.2 G/DL (30.0-36.0); MCV 103.8 FL (83-99); MONOCYTE (%) 10.5 % (3-12); MONOCYTE COUNT 0.6 K/uL (0-0.8); NEUTROPHIL COUNT 2.7 K/uL (1.8-6.4); RBC DIS.WIDTH-CV 26.3 % (11.8-14.6); RBC DIS.WIDTH-SD 90.6 % (39-53); RED BLOOD COUNT 2.34 M/uL (3.80-5.20); WHITE BLOOD COUNT 5.5 K/uL (4.1-10.2)
[2017-05-01 20:42] LABS: ANISOCYTOSIS 2+; IMM.PLATELET FRACTION 1.6 (1-7); MACROCYTES 2+; MICROCYTOSIS 1+; PLAT.SUFFICIENCY VERY DECREASED; PLATELET COUNT 43 K/uL (156-360)
[2017-05-02 03:58] VITALS: BP 108/56
[2017-05-02 07:48] VITALS: BP 113/56
[2017-05-02 09:03] LABS: BASOPHIL (%) 0.5 % (0-1); EOSINOPHIL (%) 7.6 % (0-5); EOSINOPHIL COUNT 0.5 K/uL (0-0.3); HEMATOCRIT 22.8 % (36.0-46.0); HEMOGLOBIN 7.7 G/DL (11.9-15.5); IMMATURE GRANULOCYTE (%) 0.8 % (0.0-0.7); LYMPHOCYTE (%) 32.8 % (15-42); MCHC 33.8 G/DL (30.0-36.0); MCV 103.6 FL (83-99); MONOCYTE (%) 11.4 % (3-12); MONOCYTE COUNT 0.7 K/uL (0-0.8); NEUTROPHIL (%) 46.9 % (45-76); NEUTROPHIL COUNT 2.9 K/uL (1.8-6.4); NRBC (%) 0.5 /100 WBC (0-0); RBC DIS.WIDTH-CV 25.7 % (11.8-14.6); RBC DIS.WIDTH-SD 88.4 % (39-53); WHITE BLOOD COUNT 6.1 K/uL (4.1-10.2)
[2017-05-02 09:05] LABS: PLATELET COUNT 58 K/uL (156-360)
[2017-05-02 09:36] LABS: ALBUMIN 2.3 G/DL (3.2-4.8); ALKALINE PHOSPHATASE 82 IU/L (3-129); ALT (GPT) 26 IU/L (3-49); AST (GOT) 55 IU/L (2-34); CHLORIDE 98 MEQ/L (99-109); GLUCOSE 159 mg/dL (70-99); SODIUM 127 MEQ/L (136-147); TOTAL PROTEIN 6.2 G/DL (6.4-8.3); UREA NITROGEN (BUN) 23 mg/dL (9-23)
[2017-05-02 09:42] LABS: GFR ESTIMATE (CALCULATED) > 59 mL/min/; TOTAL BILIRUBIN 6.1 MG/DL (0.0-1.0)
[2017-05-02 11:49] VITALS: BP 113/56
[2017-05-02 17:28] VITALS: BP 128/58
[2017-05-02 20:55] VITALS: BP 111/56
[2017-05-02 21:12] LABS: BASOPHIL (%) 0.4 % (0-1); EOSINOPHIL (%) 7.1 % (0-5); EOSINOPHIL COUNT 0.4 K/uL (0-0.3); IMMATURE GRANULOCYTE (%) 0.9 % (0.0-0.7); LYMPHOCYTE (%) 36.5 % (15-42); LYMPHOCYTE COUNT 2.1 K/uL (1.0-2.8); MCH 36.6 PG (29.0-34.0); MCHC 34.6 G/DL (30.0-36.0); MCV 105.7 FL (83-99); MONOCYTE (%) 13.5 % (3-12); MONOCYTE COUNT 0.8 K/uL (0-0.8); NEUTROPHIL (%) 41.6 % (45-76); NEUTROPHIL COUNT 2.4 K/uL (1.8-6.4); PLATELET COUNT 54 K/uL (156-360); RBC DIS.WIDTH-CV 25.5 % (11.8-14.6); RBC DIS.WIDTH-SD 89.8 % (39-53); RED BLOOD COUNT 2.46 M/uL (3.80-5.20); WHITE BLOOD COUNT 5.6 K/uL (4.1-10.2)
[2017-05-02 23:57] VITALS: BP 102/51
[2017-05-03 04:20] VITALS: BP 108/53
[2017-05-03 05:48] LABS: HEMATOCRIT 23.5 % (36.0-46.0); HEMOGLOBIN 7.9 G/DL (11.9-15.5); MCH 35.3 PG (29.0-34.0); MCHC 33.6 G/DL (30.0-36.0); MCV 104.9 FL (83-99); PLATELET COUNT 52 K/uL (156-360); RBC DIS.WIDTH-CV 25.3 % (11.8-14.6); RBC DIS.WIDTH-SD 89.8 % (39-53); RED BLOOD COUNT 2.24 M/uL (3.80-5.20); WHITE BLOOD COUNT 5.5 K/uL (4.1-10.2)
[2017-05-03 06:22] LABS: ALBUMIN 2.1 G/DL (3.2-4.8); ALKALINE PHOSPHATASE 87 IU/L (3-129); ALT (GPT) 25 IU/L (3-49); AST (GOT) 52 IU/L (2-34); CHLORIDE 98 MEQ/L (99-109); CREATININE 0.7 MG/DL (0.6-1.3); GFR ESTIMATE (CALCULATED) > 59 mL/min/; POTASSIUM 3.7 MEQ/L (3.7-5.4); SODIUM 125 MEQ/L (136-147); TOTAL PROTEIN 5.9 G/DL (6.4-8.3); UREA NITROGEN (BUN) 13 mg/dL (9-23)
[2017-05-03 06:23] LABS: GLUCOSE 114 mg/dL (70-99)
[2017-05-03 06:48] LABS: ABS NEUTROPHIL COUNT 3.7; ATYPICAL LYMPHOCYTE 0.9 %; BAND NEUTROPHILS 1.8 % (0-8.0); EOSINOPHIL ABS CT 0.4; EOSINOPHILS 7.3 % (0-5.0); LYMPHOCYTES 20.9 % (15.0-45.0); METAMYELOCYTES 0.9 %; MONOCYTES 2.7 % (0-9.0); NUCLEATED RBC'S 0.9; SEG.NEUTROPHILS 65.5 % (46.0-76.0); SMUDGE CELLS 13.6
[2017-05-03 08:30] VITALS: BP 115/59
[2017-05-03 11:43] VITALS: BP 130/62
[2017-05-03 15:21] VITALS: BP 98/51
[2017-05-03 20:06] VITALS: BP 100/58
[2017-05-04 00:56] VITALS: BP 101/56
[2017-05-04 05:04] LABS: HEMATOCRIT 24.8 % (36.0-46.0); HEMOGLOBIN 8.1 G/DL (11.9-15.5); MCH 34.8 PG (29.0-34.0); MCHC 32.7 G/DL (30.0-36.0); MCV 106.4 FL (83-99); RBC DIS.WIDTH-CV 25.2 % (11.8-14.6); RBC DIS.WIDTH-SD 89.8 % (39-53); RED BLOOD COUNT 2.33 M/uL (3.80-5.20); WHITE BLOOD COUNT 5.2 K/uL (4.1-10.2)
[2017-05-04 05:28] LABS: CHLORIDE 99 MEQ/L (99-109); CREATININE 0.8 MG/DL (0.6-1.3); GFR ESTIMATE (CALCULATED) > 59 mL/min/; GLUCOSE 128 mg/dL (70-99); POTASSIUM 4.2 MEQ/L (3.7-5.4); SODIUM 126 MEQ/L (136-147); UREA NITROGEN (BUN) 11 mg/dL (9-23)
[2017-05-04 05:43] LABS: ABS NEUTROPHIL COUNT 3.2; ANISOCYTOSIS 2+; ATYPICAL LYMPHOCYTE 4.5 %; BAND NEUTROPHILS 2.7 % (0-8.0); EOSINOPHIL ABS CT 0.2; EOSINOPHILS 4.6 % (0-5.0); IMM.PLATELET FRACTION 1.4 (1-7); LYMPHOCYTES 20.9 % (15.0-45.0); MACROCYTES 2+; MONOCYTES 8.2 % (0-9.0); NUCLEATED RBC'S 0.9; PLAT.SUFFICIENCY VERY DECREASED; PLATELET COUNT 47 K/uL (156-360); POIKILOCYTOSIS 1+; SEG.NEUTROPHILS 59.1 % (46.0-76.0)
[2017-05-04 05:45] VITALS: BP 101/59
[2017-05-04 07:30] VITALS: BP 126/60
== END 2017-05-04 09:29 | disposition left against medical advice (07) | DRG 378 ==
LOC: EME 07:24 → EDOF 14:10 → 4EAST 14:10 → ENRESERV 14:44 → 4EAST 16:47
PROVIDERS: Internal Medicine; Nurse Practitioner Family; Specialist
PROC: 30233N1 Transfusion of Nonautologous Red Blood Cells into Peripheral Vein, Percutaneous Approach (ICD-10-PCS; principal; 2017-04-30)
PROC: 30233R1 Transfusion of Nonautologous Platelets into Peripheral Vein, Percutaneous Approach (ICD-10-PCS; 2017-05-01)
PROC: 0W9G3ZZ Drainage of Peritoneal Cavity, Percutaneous Approach (ICD-10-PCS; 2017-05-01)
DX: K92.1 Melena (principal); D62 Acute posthemorrhagic anemia; E87.1 Hypo-osmolality and hyponatremia; D69.59 Other secondary thrombocytopenia; B19.20 Unspecified viral hepatitis C without hepatic coma; K70.31 Alcoholic cirrhosis of liver with ascites; K76.6 Portal hypertension; I85.00 Esophageal varices without bleeding; D73.1 Hypersplenism; F10.10 Alcohol abuse, uncomplicated; F32.9 Major depressive disorder, single episode, unspecified; B37.0 Candidal stomatitis; Z23 Encounter for immunization; Z87.891 Personal history of nicotine dependence
CPT/HCPCS: 49083; 74177; 80048; 80053; 81003; 82140; 82150; 82150 91; 83615 91; 83690; 83735; 84100; 84157; 85025; 85025 91; 85027; 85610; 85730; 86850; 86900; 86901; 86920; 87070; 87075; 87086; 87205; 87651 90; 87902 90; 88108; 89051; 90686; 99281; 99285; C9113; G0480; J0500; J0696; J1885; J2354; J2405; J3411; J3430; J3480; J7030; J7050; P9016; P9035; P9037

== ENCOUNTER 2017-05-09 08:23 | Emergency (ER) | payer OTHER ==
[~2017-05-09] VITALS: Ht 157.5 cm; Wt 68.1 kg
[~2017-05-09 08:23] MED LIST changes: +B-1100 MG PO; +GENERLAC10 GM/15 M PO; +LASIX40 MG PO
[2017-05-09 09:29] LABS: BASOPHIL (%) 1.3 % (0-1); BASOPHIL COUNT 0.1 K/uL (0-0.1); EOSINOPHIL (%) 4.8 % (0-5); EOSINOPHIL COUNT 0.3 K/uL (0-0.3); HEMATOCRIT 24.8 % (36.0-46.0); HEMOGLOBIN 8.1 G/DL (11.9-15.5); IMMATURE GRANULOCYTE (%) 0.6 % (0.0-0.7); LYMPHOCYTE (%) 35.4 % (15-42); LYMPHOCYTE COUNT 1.9 K/uL (1.0-2.8); MCH 35.2 PG (29.0-34.0); MCHC 32.7 G/DL (30.0-36.0); MCV 107.8 FL (83-99); MONOCYTE (%) 13.1 % (3-12); MONOCYTE COUNT 0.7 K/uL (0-0.8); NEUTROPHIL (%) 44.8 % (45-76); NEUTROPHIL COUNT 2.4 K/uL (1.8-6.4); PLATELET COUNT 57 K/uL (156-360); RBC DIS.WIDTH-CV 25.3 % (11.8-14.6); RBC DIS.WIDTH-SD 93.6 % (39-53); WHITE BLOOD COUNT 5.4 K/uL (4.1-10.2)
[2017-05-09 09:36] LABS: INTER. NORMALIZED RATIO 1.5
[2017-05-09 09:38] LABS: PTT 42.7 SEC (25-37)
[2017-05-09 09:39] LABS: CHLORIDE 106 mEq/L (99-109); POTASSIUM 4.7 mEq/L (3.7-5.4); SODIUM 130 mEq/L (136-147)
[2017-05-09 09:40] LABS: ALBUMIN 2.2 g/dL (3.2-4.8); MAGNESIUM 1.3 mg/dL (1.3-2.7)
[2017-05-09 09:42] LABS: GLUCOSE 133 mg/dL (70-99); TOTAL PROTEIN 7.4 g/dL (6.4-8.3)
[2017-05-09 09:44] LABS: TOTAL BILIRUBIN 5.5 mg/dL (0.0-1.0)
[2017-05-09 09:45] LABS: SERUM ETHYL ALCOHOL < 10 mg/dL
[2017-05-09 09:46] LABS: ALKALINE PHOSPHATASE 126 IU/L (3-129); CREATININE 0.7 mg/dL (0.6-1.3); GFR ESTIMATE (CALCULATED) > 59 mL/min/
[2017-05-09 09:47] LABS: AST (GOT) 66 IU/L (2-34); UREA NITROGEN (BUN) 16 mg/dL (9-23)
[2017-05-09 09:49] LABS: ALT (GPT) 38 IU/L (3-49); LIPASE 74 U/L (1.0-51.0)
[2017-05-09 09:50] LABS: TROP-I INTERPRETATION NEGATIVE; TROPONIN-I < 0.01 ng/mL (0.0-0.30)
[2017-05-09 12:40] LABS: APPEARANCE CLEAR ((CLEAR)); BILIRUBIN NEGATIVE; BLOOD NEGATIVE; COLOR AMBER ((YELLOW)); GLUCOSE (STRIP) NEGATIVE; KETONES NEGATIVE; LEUKOCYTES NEGATIVE; NITRITE NEGATIVE; PROTEIN (STRIP) NEGATIVE; SPECIFIC GRAVITY 1.025 (1.000-1.030); UCUL ADDED? NO
[2017-05-09 20:45] VITALS: BP 124/74
== END 2017-05-09 21:00 | disposition home or self-care (01) ==
LOC: EME 08:23
PROVIDERS: Emergency Medicine
PROC: 0W9G3ZZ Drainage of Peritoneal Cavity, Percutaneous Approach (ICD-10-PCS; principal; 2017-05-09)
DX: R06.00 Dyspnea, unspecified (principal); R18.8 Other ascites; K74.60 Unspecified cirrhosis of liver; R53.1 Weakness; R19.7 Diarrhea, unspecified
CPT/HCPCS: 49083; 71045; 80053; 81003; 83690; 83735; 83880; 84484; 85025; 85610; 85730; 93005; 99281; 99285; G0480; J7040

== ENCOUNTER 2017-05-15 21:35 | Emergency (ER) | payer OTHER ==
[~2017-05-15] VITALS: Ht 157.5 cm; Wt 63.5 kg
[2017-05-16 04:10] VITALS: BP 121/75
== END 2017-05-16 04:11 | disposition home or self-care (01) ==
LOC: EME 21:35
DX: K70.31 Alcoholic cirrhosis of liver with ascites (principal); B19.20 Unspecified viral hepatitis C without hepatic coma; F41.9 Anxiety disorder, unspecified; F32.9 Major depressive disorder, single episode, unspecified; F17.200 Nicotine dependence, unspecified, uncomplicated
CPT/HCPCS: 71046; 99281; 99284

== ENCOUNTER 2017-05-16 09:24 | Emergency (ER) | payer OTHER ==
[~2017-05-16] VITALS: Ht 157.5 cm; Wt 63.1 kg
[2017-05-16 11:18] LABS: HEMATOCRIT 24.7 % (36.0-46.0); HEMOGLOBIN 8.3 G/DL (11.9-15.5); MCH 36.6 PG (29.0-34.0); MCHC 33.6 G/DL (30.0-36.0); MCV 108.8 FL (83-99); PLATELET COUNT 54 K/uL (156-360); RBC DIS.WIDTH-CV 24.9 % (11.8-14.6); RBC DIS.WIDTH-SD 95.6 % (39-53); RED BLOOD COUNT 2.27 M/uL (3.80-5.20); WHITE BLOOD COUNT 5.7 K/uL (4.1-10.2)
[2017-05-16 11:26] LABS: INTER. NORMALIZED RATIO 1.6
[2017-05-16 11:27] LABS: ALBUMIN 2.4 g/dL (3.2-4.8)
[2017-05-16 11:28] LABS: CHLORIDE 106 mEq/L (99-109); POTASSIUM 3.4 mEq/L (3.7-5.4); PTT 41.2 SEC (25-37); SODIUM 130 mEq/L (136-147)
[2017-05-16 11:30] LABS: GLUCOSE 139 mg/dL (70-99); TOTAL PROTEIN 7.7 g/dL (6.4-8.3)
[2017-05-16 11:32] LABS: TOTAL BILIRUBIN 5.6 mg/dL (0.0-1.0)
[2017-05-16 11:33] LABS: ALKALINE PHOSPHATASE 132 IU/L (3-129)
[2017-05-16 11:34] LABS: CREATININE 0.8 mg/dL (0.6-1.3); GFR ESTIMATE (CALCULATED) > 59 mL/min/
[2017-05-16 11:35] LABS: AST (GOT) 70 IU/L (2-34); UREA NITROGEN (BUN) 9 mg/dL (9-23)
[2017-05-16 11:37] LABS: ALT (GPT) 46 IU/L (3-49)
[2017-05-16 15:44] VITALS: BP 115/60
== END 2017-05-16 15:45 | disposition home or self-care (01) ==
LOC: RME 09:24 → EME 09:24 → RME 15:45
PROVIDERS: Physician Assistant
PROC: 0W9G3ZZ Drainage of Peritoneal Cavity, Percutaneous Approach (ICD-10-PCS; principal; 2017-05-16)
DX: R18.8 Other ascites (principal); B19.20 Unspecified viral hepatitis C without hepatic coma; K74.60 Unspecified cirrhosis of liver; D64.9 Anemia, unspecified; F32.9 Major depressive disorder, single episode, unspecified; F41.9 Anxiety disorder, unspecified; F17.200 Nicotine dependence, unspecified, uncomplicated
CPT/HCPCS: 49083; 80053; 85027; 85610; 85730; 99281; 99285

== ENCOUNTER 2017-05-26 18:38 | Emergency (ER) | payer OTHER ==
[~2017-05-26] VITALS: Ht 157.5 cm; Wt 65.0 kg
[2017-05-26 19:22] LABS: HEMATOCRIT 23.4 % (36.0-46.0); MCH 37.6 PG (29.0-34.0); MCHC 34.2 G/DL (30.0-36.0); MCV 109.9 FL (83-99); PLATELET COUNT 51 K/uL (156-360); RBC DIS.WIDTH-CV 24.5 % (11.8-14.6); RED BLOOD COUNT 2.13 M/uL (3.80-5.20); WHITE BLOOD COUNT 9.4 K/uL (4.1-10.2)
[2017-05-26 19:32] LABS: ALBUMIN 2.2 g/dL (3.2-4.8); CHLORIDE 98 mEq/L (99-109); POTASSIUM 3.2 mEq/L (3.7-5.4); SODIUM 129 mEq/L (136-147)
[2017-05-26 19:35] LABS: GLUCOSE 85 mg/dL (70-99); TOTAL PROTEIN 6.7 g/dL (6.4-8.3)
[2017-05-26 19:37] LABS: TOTAL BILIRUBIN 4.1 mg/dL (0.0-1.0)
[2017-05-26 19:38] LABS: ALKALINE PHOSPHATASE 167 IU/L (3-129); CREATININE 0.7 mg/dL (0.6-1.3); GFR ESTIMATE (CALCULATED) > 59 mL/min/
[2017-05-26 19:40] LABS: AST (GOT) 69 IU/L (2-34); UREA NITROGEN (BUN) 9 mg/dL (9-23)
[2017-05-26 19:41] LABS: ALT (GPT) 38 IU/L (3-49)
[2017-05-26 19:42] LABS: LIPASE 74 U/L (1.0-51.0)
[2017-05-26 19:48] LABS: QUANTITATIVE HCG < 4.0 MIU/ML
[2017-05-26] MEDS ORDERED: [UNRECOGNIZED DRUG - OTHER] (21:53)
[2017-05-26 21:59] VITALS: BP 99/46
== END 2017-05-26 22:02 | disposition home or self-care (01) ==
LOC: EME → EDBD 18:38 → EME 18:38
PROVIDERS: Emergency Medicine
DX: K74.60 Unspecified cirrhosis of liver (principal); K72.90 Hepatic failure, unspecified without coma; B19.20 Unspecified viral hepatitis C without hepatic coma; F17.200 Nicotine dependence, unspecified, uncomplicated; F32.9 Major depressive disorder, single episode, unspecified; F41.9 Anxiety disorder, unspecified
CPT/HCPCS: 74018; 80053; 81003; 83690; 84702; 85027; 99281; 99285; J7030

== ENCOUNTER 2017-05-28 06:54 | Emergency (ER) | payer OTHER ==
[~2017-05-28] VITALS: Ht 157.5 cm; Wt 67.6 kg
[~2017-05-28 06:54] MED LIST changes: +[UNRECOGNIZED DRUG - OTHER]
[2017-05-28 07:46] LABS: HEMATOCRIT 24.7 % (36.0-46.0); HEMOGLOBIN 8.3 G/DL (11.9-15.5); MCH 37.4 PG (29.0-34.0); MCHC 33.6 G/DL (30.0-36.0); MCV 111.3 FL (83-99); NRBC (%) 0.2 /100 WBC (0-0); PLATELET COUNT 53 K/uL (156-360); RBC DIS.WIDTH-CV 24.2 % (11.8-14.6); RBC DIS.WIDTH-SD 95.6 % (39-53); RED BLOOD COUNT 2.22 M/uL (3.80-5.20)
[2017-05-28 07:52] LABS: INTER. NORMALIZED RATIO 1.6
[2017-05-28 07:54] LABS: PTT 40.8 SEC (25-37)
[2017-05-28 08:23] LABS: ALBUMIN 2.2 G/DL (3.2-4.8); ALKALINE PHOSPHATASE 111 IU/L (3-129); ALT (GPT) 31 IU/L (3-49); AST (GOT) 51 IU/L (2-34); CHLORIDE 96 MEQ/L (99-109); CREATININE 0.7 MG/DL (0.6-1.3); GFR ESTIMATE (CALCULATED) > 59 mL/min/; POTASSIUM 3.4 MEQ/L (3.7-5.4); SODIUM 126 MEQ/L (136-147); TOTAL BILIRUBIN 5.7 MG/DL (0.0-1.0); TOTAL PROTEIN 6.8 G/DL (6.4-8.3); UREA NITROGEN (BUN) 12 mg/dL (9-23)
[2017-05-28 08:30] LABS: GLUCOSE 166 mg/dL (70-99)
[2017-05-28] MEDS ORDERED: LEVAQUIN500 MG PO (16:04)
[2017-05-28 16:51] VITALS: BP 113/50
== END 2017-05-28 16:51 | disposition home or self-care (01) ==
LOC: EME 06:54
PROVIDERS: Physician Assistant
PROC: 0W9G30Z Drainage of Peritoneal Cavity with Drainage Device, Percutaneous Approach (ICD-10-PCS; principal; 2017-05-28)
DX: R18.8 Other ascites (principal); J18.9 Pneumonia, unspecified organism; K74.60 Unspecified cirrhosis of liver; B19.20 Unspecified viral hepatitis C without hepatic coma; F41.9 Anxiety disorder, unspecified; F32.9 Major depressive disorder, single episode, unspecified; F10.10 Alcohol abuse, uncomplicated; F17.200 Nicotine dependence, unspecified, uncomplicated
CPT/HCPCS: 49083; 71045; 80053; 81003; 85027; 85610; 85730; J2270; J2543; J7050

== ENCOUNTER 2017-05-30 09:36 | Inpatient (IN) | payer OTHER ==
[~2017-05-30] VITALS: Ht 157.5 cm; Wt 69.1 kg
[~2017-05-30 09:36] MED LIST changes: +LEVAQUIN500 MG PO
[2017-05-30 10:08] LABS: BASOPHIL (%) 0.6 % (0-1); EOSINOPHIL (%) 2.7 % (0-5); EOSINOPHIL COUNT 0.2 K/uL (0-0.3); HEMATOCRIT 24.2 % (36.0-46.0); HEMOGLOBIN 8.3 G/DL (11.9-15.5); IMMATURE GRANULOCYTE (%) 1.2 % (0.0-0.7); LYMPHOCYTE (%) 32.7 % (15-42); LYMPHOCYTE COUNT 2.1 K/uL (1.0-2.8); MCH 37.9 PG (29.0-34.0); MCHC 34.3 G/DL (30.0-36.0); MCV 110.5 FL (83-99); MONOCYTE (%) 12.4 % (3-12); MONOCYTE COUNT 0.8 K/uL (0-0.8); NEUTROPHIL (%) 50.4 % (45-76); NEUTROPHIL COUNT 3.3 K/uL (1.8-6.4); NRBC (%) 0.3 /100 WBC (0-0); PLATELET COUNT 54 K/uL (156-360); RBC DIS.WIDTH-CV 23.3 % (11.8-14.6); RBC DIS.WIDTH-SD 91.3 % (39-53); RED BLOOD COUNT 2.19 M/uL (3.80-5.20); WHITE BLOOD COUNT 6.6 K/uL (4.1-10.2)
[2017-05-30 10:13] LABS: INTER. NORMALIZED RATIO 1.8
[2017-05-30 10:21] LABS: ALBUMIN 2.1 g/dL (3.2-4.8)
[2017-05-30 10:22] LABS: CHLORIDE 97 mEq/L (99-109); POTASSIUM 3.9 mEq/L (3.7-5.4); SODIUM 124 mEq/L (136-147)
[2017-05-30 10:24] LABS: GLUCOSE 112 mg/dL (70-99); TOTAL PROTEIN 6.6 g/dL (6.4-8.3)
[2017-05-30 10:26] LABS: TOTAL BILIRUBIN 4.2 mg/dL (0.0-1.0)
[2017-05-30 10:27] LABS: ALKALINE PHOSPHATASE 131 IU/L (3-129)
[2017-05-30 10:28] LABS: CREATININE 0.8 mg/dL (0.6-1.3); GFR ESTIMATE (CALCULATED) > 59 mL/min/
[2017-05-30 10:29] LABS: AST (GOT) 77 IU/L (2-34); UREA NITROGEN (BUN) 15 mg/dL (9-23)
[2017-05-30 10:30] LABS: ALT (GPT) 36 IU/L (3-49)
[2017-05-30 10:31] LABS: LIPASE 89 U/L (1.0-51.0)
[2017-05-30 11:11] LABS: TYPE OF FLUID PERITONEAL
[2017-05-30 11:24] LABS: APPEARANCE SL. HAZY-YELLOW; BODY FLUID RBC'S < 1000 /MM^3 (0-100); BODY FLUID WBC'S 374 /MM^3 (0-500)
[2017-05-30 11:45] LABS: BODY FLUID EOSINOPHILS 4 % (0-25); MONONUCLEAR WBC'S 24 %; POLYNUCLEAR WBC'S 72 % (0-25)
[2017-05-30 11:49] LABS: APPEARANCE CLOUDY ((CLEAR)); BILIRUBIN SMALL; BLOOD NEGATIVE; COLOR AMBER ((YELLOW)); GLUCOSE (STRIP) NEGATIVE; KETONES NEGATIVE; LEUKOCYTES NEGATIVE; NITRITE NEGATIVE; PROTEIN (STRIP) 30; SPECIFIC GRAVITY 1.028 (1.000-1.030)
[2017-05-30 12:00] LABS: BACTERIA RARE /HPF; EPITHELIAL CELLS 2+ /HPF; MUCUS 2+ /LPF; UCUL ADDED? NO; WHITE BLOOD CELLS 0-5 /HPF (0-5)
[2017-05-30] MEDS ORDERED: LEXAPRO10 MG PO (12:51)
[2017-05-30] MEDS ORDERED: LEVAQUIN500 MG PO (12:53)
[2017-05-30 18:24] VITALS: BP 104/55
[2017-05-30 19:23] VITALS: BP 120/59
[2017-05-31 00:06] VITALS: BP 112/66
[2017-05-31 04:05] VITALS: BP 132/60
[2017-05-31 07:18] VITALS: BP 119/58
[2017-05-31 07:25] LABS: HEMATOCRIT 23.2 % (36.0-46.0); HEMOGLOBIN 7.9 G/DL (11.9-15.5); MCH 38.2 PG (29.0-34.0); MCHC 34.1 G/DL (30.0-36.0); MCV 112.1 FL (83-99); RBC DIS.WIDTH-CV 22.7 % (11.8-14.6); RBC DIS.WIDTH-SD 91.8 % (39-53); RED BLOOD COUNT 2.07 M/uL (3.80-5.20); WHITE BLOOD COUNT 5.8 K/uL (4.1-10.2)
[2017-05-31 07:44] LABS: ALBUMIN 1.8 G/DL (3.2-4.8); ALKALINE PHOSPHATASE 103 IU/L (3-129); ALT (GPT) 30 IU/L (3-49); AST (GOT) 72 IU/L (2-34); CHLORIDE 97 MEQ/L (99-109); CREATININE 0.7 MG/DL (0.6-1.3); GFR ESTIMATE (CALCULATED) > 59 mL/min/; GLUCOSE 100 mg/dL (70-99); POTASSIUM 3.5 MEQ/L (3.7-5.4); SODIUM 126 MEQ/L (136-147); TOTAL BILIRUBIN 5.3 MG/DL (0.0-1.0); UREA NITROGEN (BUN) 13 mg/dL (9-23)
[2017-05-31 07:51] LABS: IMM.PLATELET FRACTION 1.1 (1-7); PLAT.SUFFICIENCY DECREASED; PLATELET COUNT 48 K/uL (156-360)
[2017-05-31 11:01] VITALS: BP 99/54
[2017-05-31 15:07] VITALS: BP 87/51
[2017-05-31 19:00] VITALS: BP 114/60
[2017-06-01 00:19] VITALS: BP 102/54
[2017-06-01 06:27] LABS: HEMATOCRIT 23.4 % (36.0-46.0); HEMOGLOBIN 7.7 G/DL (11.9-15.5); MCH 37.2 PG (29.0-34.0); MCHC 32.9 G/DL (30.0-36.0); NRBC (%) 0.3 /100 WBC (0-0); PLATELET COUNT 55 K/uL (156-360); RBC DIS.WIDTH-CV 22.5 % (11.8-14.6); RBC DIS.WIDTH-SD 89.4 % (39-53); RED BLOOD COUNT 2.07 M/uL (3.80-5.20); WHITE BLOOD COUNT 5.9 K/uL (4.1-10.2)
[2017-06-01 06:48] LABS: CHLORIDE 97 MEQ/L (99-109); CREATININE 0.8 MG/DL (0.6-1.3); GFR ESTIMATE (CALCULATED) > 59 mL/min/; GLUCOSE 110 mg/dL (70-99); POTASSIUM 3.2 MEQ/L (3.7-5.4); SODIUM 126 MEQ/L (136-147); UREA NITROGEN (BUN) 13 mg/dL (9-23)
[2017-06-01 08:11] VITALS: BP 92/51
[2017-06-01 16:24] VITALS: BP 84/40
[2017-06-01 17:00] VITALS: BP 90/51
[2017-06-01 23:35] VITALS: BP 111/61
[2017-06-02 05:54] LABS: CHLORIDE 98 MEQ/L (99-109); CREATININE 0.8 MG/DL (0.6-1.3); GFR ESTIMATE (CALCULATED) > 59 mL/min/; GLUCOSE 115 mg/dL (70-99); POTASSIUM 3.3 MEQ/L (3.7-5.4); SODIUM 127 MEQ/L (136-147); UREA NITROGEN (BUN) 12 mg/dL (9-23)
[2017-06-02 07:20] VITALS: BP 94/52
[2017-06-02 15:54] VITALS: BP 86/51
[2017-06-02 17:09] LABS: TYPE OF FLUID PARACENTESIS
[2017-06-02 17:46] LABS: APPEARANCE CLEAR-YELLOW; BODY FLUID EOSINOPHILS 0 % (0-25); BODY FLUID RBC'S < 1000 /MM^3 (0-100); BODY FLUID WBC'S 97 /MM^3 (0-500); MONONUCLEAR WBC'S 85 %; POLYNUCLEAR WBC'S 15 % (0-25)
[2017-06-02 23:36] VITALS: BP 90/55
[2017-06-03 07:02] LABS: HEMATOCRIT 24.5 % (36.0-46.0); HEMOGLOBIN 8.2 G/DL (11.9-15.5); MCH 38.9 PG (29.0-34.0); MCHC 33.5 G/DL (30.0-36.0); MCV 116.1 FL (83-99); PLATELET COUNT 56 K/uL (156-360); RBC DIS.WIDTH-CV 22.6 % (11.8-14.6); RBC DIS.WIDTH-SD 95.4 % (39-53); RED BLOOD COUNT 2.11 M/uL (3.80-5.20); WHITE BLOOD COUNT 5.8 K/uL (4.1-10.2)
[2017-06-03 07:24] LABS: ALBUMIN 1.8 G/DL (3.2-4.8); ALKALINE PHOSPHATASE 107 IU/L (3-129); ALT (GPT) 36 IU/L (3-49); AST (GOT) 68 IU/L (2-34); CHLORIDE 101 MEQ/L (99-109); CREATININE 0.8 MG/DL (0.6-1.3); GFR ESTIMATE (CALCULATED) > 59 mL/min/; GLUCOSE 109 mg/dL (70-99); SODIUM 129 MEQ/L (136-147); TOTAL BILIRUBIN 4.3 MG/DL (0.0-1.0); TOTAL PROTEIN 5.8 G/DL (6.4-8.3); UREA NITROGEN (BUN) 12 mg/dL (9-23)
[2017-06-03 07:47] LABS: POTASSIUM 4.2 MEQ/L (3.7-5.4)
[2017-06-03 07:50] LABS: BASOPHIL (%) 0.9 % (0-1); BASOPHIL COUNT 0.1 K/uL (0-0.1); EOSINOPHIL (%) 4.5 % (0-5); EOSINOPHIL COUNT 0.3 K/uL (0-0.3); IMMATURE GRANULOCYTE (%) 0.7 % (0.0-0.7); LYMPHOCYTE (%) 44.9 % (15-42); LYMPHOCYTE COUNT 2.6 K/uL (1.0-2.8); MONOCYTE (%) 14.9 % (3-12); MONOCYTE COUNT 0.9 K/uL (0-0.8); NEUTROPHIL (%) 34.1 % (45-76)
[2017-06-03 08:01] VITALS: BP 91/55
[2017-06-03 15:12] VITALS: BP 95/54
[2017-06-04 00:11] VITALS: BP 103/55
[2017-06-04 07:34] LABS: BASOPHIL (%) 0.8 % (0-1); BASOPHIL COUNT 0.1 K/uL (0-0.1); EOSINOPHIL (%) 3.6 % (0-5); EOSINOPHIL COUNT 0.2 K/uL (0-0.3); HEMOGLOBIN 7.8 G/DL (11.9-15.5); IMMATURE GRANULOCYTE (%) 0.8 % (0.0-0.7); LYMPHOCYTE (%) 48.3 % (15-42); LYMPHOCYTE COUNT 3.1 K/uL (1.0-2.8); MCH 37.7 PG (29.0-34.0); MCHC 32.5 G/DL (30.0-36.0); MCV 115.9 FL (83-99); MONOCYTE (%) 14.3 % (3-12); MONOCYTE COUNT 0.9 K/uL (0-0.8); NEUTROPHIL (%) 32.2 % (45-76); NEUTROPHIL COUNT 2.1 K/uL (1.8-6.4); PLATELET COUNT 53 K/uL (156-360); RED BLOOD COUNT 2.07 M/uL (3.80-5.20); WHITE BLOOD COUNT 6.4 K/uL (4.1-10.2)
[2017-06-04 07:43] VITALS: BP 102/56
[2017-06-04 08:00] LABS: CHLORIDE 98 MEQ/L (99-109); CREATININE 0.8 MG/DL (0.6-1.3); GFR ESTIMATE (CALCULATED) > 59 mL/min/; GLUCOSE 96 mg/dL (70-99); POTASSIUM 3.8 MEQ/L (3.7-5.4); SODIUM 125 MEQ/L (136-147); UREA NITROGEN (BUN) 13 mg/dL (9-23)
[2017-06-04] MEDS ORDERED: PROTONIX40 MG PO (09:58)
[2017-06-04] MEDS ORDERED: CIPRO500 MG PO (09:59)
[2017-06-04] MEDS ORDERED: NADOLOL20 MG PO (10:00)
[2017-06-04] MEDS ORDERED: LACTULOSE10 GM/151 PO (10:01)
[2017-06-04] MEDS ORDERED: LASIX40 MG PO ×2 (10:31→10:33)
[2017-06-04] MEDS ORDERED: OMEPRAZOLE40 M1 PO (12:19)
== END 2017-06-04 14:30 | disposition home health service (06) | DRG 372 ==
LOC: EME 09:36 → 5SOUTH 12:26 → EDOF 12:26 → ENRESERV 12:32 → 5SOUTH 18:08 → ENPENDDIS 06-04 → 5SOUTH 06-04 14:30
PROVIDERS: Emergency Medicine; Hospitalist; Internal Medicine; Internal Medicine Gastroenterology; Physician Assistant; Radiology Diagnostic Radiology
PROC: 0W9G3ZZ Drainage of Peritoneal Cavity, Percutaneous Approach (ICD-10-PCS; principal; 2017-05-30)
PROC: 0W9G3ZZ Drainage of Peritoneal Cavity, Percutaneous Approach (ICD-10-PCS; 2017-06-03)
DX: K65.2 Spontaneous bacterial peritonitis (principal); K70.31 Alcoholic cirrhosis of liver with ascites; D68.9 Coagulation defect, unspecified; E22.2 Syndrome of inappropriate secretion of antidiuretic hormone; B18.2 Chronic viral hepatitis C; D53.9 Nutritional anemia, unspecified; K72.90 Hepatic failure, unspecified without coma; D69.6 Thrombocytopenia, unspecified; I10 Essential (primary) hypertension
CPT/HCPCS: 49083; 71045; 71046; 71250; 80048; 80053; 81003; 83690; 85025; 85027; 85610; 85730; 87040; 87070; 87075; 87205; 87493; 87502; 88108; 88305; 89051; 93005; 99202; 99281; 99285; J1644; J1652; J2270; J2543; J7030; J7050

== ENCOUNTER → 2017-06-15 | Outpatient (CLI) | payer OTHER ==
[~2017-06-15] MED LIST changes: +CIPRO500 MG PO; +LACTULOSE10 GM/151 PO; +NADOLOL20 MG PO; +OMEPRAZOLE40 M1 PO; +XIFAXAN550 MG PO
== END | disposition home or self-care (01) ==
LOC: RAD 12:51
PROC: 0W9G3ZZ Drainage of Peritoneal Cavity, Percutaneous Approach (ICD-10-PCS; principal; 2017-06-15)
DX: K70.31 Alcoholic cirrhosis of liver with ascites (principal)
CPT/HCPCS: 49083

== ENCOUNTER 2017-06-16 17:55 | Inpatient (IN) | payer OTHER ==
[~2017-06-16] VITALS: Ht 157.5 cm; Wt 53.5 kg
[~2017-06-16 17:55] MED LIST changes: -XIFAXAN550 MG PO
[2017-06-16 20:17] LABS: HEMOGLOBIN 7.1 G/DL (11.9-15.5); MCH 38.4 PG (29.0-34.0); MCHC 33.8 G/DL (30.0-36.0); MCV 113.5 FL (83-99); RBC DIS.WIDTH-CV 17.8 % (11.8-14.6); RBC DIS.WIDTH-SD 74.6 % (39-53); RED BLOOD COUNT 1.85 M/uL (3.80-5.20); WHITE BLOOD COUNT 5.6 K/uL (4.1-10.2)
[2017-06-16 20:25] LABS: INTER. NORMALIZED RATIO 1.4
[2017-06-16 20:28] LABS: PTT 36.7 SEC (25-37)
[2017-06-16 20:34] LABS: ALBUMIN 2.1 g/dL (3.2-4.8); CHLORIDE 104 mEq/L (99-109); POTASSIUM 3.1 mEq/L (3.7-5.4); SODIUM 135 mEq/L (136-147)
[2017-06-16 20:36] LABS: GLUCOSE 93 mg/dL (70-99)
[2017-06-16 20:39] LABS: ALKALINE PHOSPHATASE 104 IU/L (3-129)
[2017-06-16 20:40] LABS: GFR ESTIMATE (CALCULATED) > 59 mL/min/
[2017-06-16 20:41] LABS: AST (GOT) 77 IU/L (2-34); UREA NITROGEN (BUN) 15 mg/dL (9-23)
[2017-06-16 20:43] LABS: ALT (GPT) 35 IU/L (3-49)
[2017-06-16 20:59] LABS: HEMATOLOGY COMMENT 1 SN; IMM.PLATELET FRACTION 1.5 (1-7); PLAT.SUFFICIENCY DECREASED; PLATELET COUNT 47 K/uL (156-360)
[2017-06-17] VITALS (8 sets, daily range): BP systolic 85–105; BP diastolic 47–58
[2017-06-17 04:12] LABS: HEMATOCRIT 24.8 % (36.0-46.0); HEMOGLOBIN 8.7 G/DL (11.9-15.5); MCH 38.3 PG (29.0-34.0); MCHC 35.1 G/DL (30.0-36.0); RBC DIS.WIDTH-CV 20.2 % (11.8-14.6); RBC DIS.WIDTH-SD 80.6 % (39-53); WHITE BLOOD COUNT 4.9 K/uL (4.1-10.2)
[2017-06-17 04:17] LABS: ALBUMIN 1.9 g/dL (3.2-4.8)
[2017-06-17 04:18] LABS: CHLORIDE 104 mEq/L (99-109); POTASSIUM 3.1 mEq/L (3.7-5.4); SODIUM 133 mEq/L (136-147)
[2017-06-17 04:20] LABS: TOTAL PROTEIN 5.6 g/dL (6.4-8.3)
[2017-06-17 04:22] LABS: TOTAL BILIRUBIN 3.1 mg/dL (0.0-1.0)
[2017-06-17 04:23] LABS: ALKALINE PHOSPHATASE 91 IU/L (3-129)
[2017-06-17 04:24] LABS: CREATININE 1.1 mg/dL (0.6-1.3); GFR ESTIMATE (CALCULATED) 56 mL/min/
[2017-06-17 04:25] LABS: AST (GOT) 65 IU/L (2-34); UREA NITROGEN (BUN) 14 mg/dL (9-23)
[2017-06-17 04:26] LABS: ALT (GPT) 31 IU/L (3-49); GLUCOSE 117 mg/dL (70-99)
[2017-06-17 04:28] LABS: MCV 109.3 FL (83-99); RED BLOOD COUNT 2.27 M/uL (3.80-5.20)
[2017-06-17 05:27] LABS: IMM.PLATELET FRACTION 2.2 (1-7); PLAT.SUFFICIENCY VERY DECREASED; PLATELET COUNT 39 K/uL (156-360)
[2017-06-17 15:58] LABS: TYPE OF FLUID PLEURAL
[2017-06-17 16:40] LABS: APPEARANCE HAZY-YELLOW; BODY FLUID EOSINOPHILS 0 % (0-25); BODY FLUID RBC'S 1000 /MM^3 (0-100); BODY FLUID WBC'S 100 /MM^3 (0-500); COMMENT MANY MACROPHAGES AND MESOTHELIAL CELLS SEEN; MONONUCLEAR WBC'S 74 %; POLYNUCLEAR WBC'S 26 % (0-25)
[2017-06-18] VITALS: BP 105/54
[2017-06-18 06:38] LABS: WHITE BLOOD COUNT 5.2 K/uL (4.1-10.2)
[2017-06-18 06:39] LABS: HEMATOCRIT 25.9 % (36.0-46.0); HEMOGLOBIN 8.6 G/DL (11.9-15.5); MCH 36.8 PG (29.0-34.0); MCHC 33.2 G/DL (30.0-36.0); MCV 110.7 FL (83-99); RBC DIS.WIDTH-CV 20.7 % (11.8-14.6); RBC DIS.WIDTH-SD 82.7 % (39-53); RED BLOOD COUNT 2.34 M/uL (3.80-5.20)
[2017-06-18 07:01] LABS: CHLORIDE 102 MEQ/L (99-109); CREATININE 1.4 MG/DL (0.6-1.3); GFR ESTIMATE (CALCULATED) 42 mL/min/; GLUCOSE 113 mg/dL (70-99); SODIUM 130 MEQ/L (136-147); UREA NITROGEN (BUN) 15 mg/dL (9-23)
[2017-06-18 07:04] LABS: POTASSIUM 4.1 MEQ/L (3.7-5.4)
[2017-06-18 07:11] LABS: PLAT.SUFFICIENCY DECREASED; PLATELET COUNT 36 K/uL (156-360)
[2017-06-18 07:25] VITALS: BP 101/55
[2017-06-18] MEDS ORDERED: XIFAXAN550 MG PO (14:19)
== END 2017-06-18 15:39 | disposition home or self-care (01) | DRG 641 ==
LOC: EME 17:55 → EDOF 22:30 → ENRESERV 22:31 → 5EAST 06-17 00:13
PROVIDERS: Internal Medicine; Internal Medicine Gastroenterology; Nurse Practitioner Family
PROC: 30233N1 Transfusion of Nonautologous Red Blood Cells into Peripheral Vein, Percutaneous Approach (ICD-10-PCS; principal; 2017-06-16)
PROC: 0W9G3ZX Drainage of Peritoneal Cavity, Percutaneous Approach, Diagnostic (ICD-10-PCS; 2017-06-17)
DX: E87.1 Hypo-osmolality and hyponatremia (principal); I95.9 Hypotension, unspecified; E86.0 Dehydration; E87.6 Hypokalemia; D69.6 Thrombocytopenia, unspecified; I85.00 Esophageal varices without bleeding; K70.31 Alcoholic cirrhosis of liver with ascites; B19.20 Unspecified viral hepatitis C without hepatic coma; D63.8 Anemia in other chronic diseases classified elsewhere; K64.9 Unspecified hemorrhoids; F10.10 Alcohol abuse, uncomplicated; F41.9 Anxiety disorder, unspecified; F17.200 Nicotine dependence, unspecified, uncomplicated
CPT/HCPCS: 49083; 71046; 80048; 80053; 83605; 85027; 85610; 85730; 86850; 86900; 86901; 86920; 87040; 87070; 87075; 87086; 87106; 87205; 87502; 87651 90; 89051; 94799; 99281; 99285; J2543; J3010; J3370; J7030; J7050; P9016

== ENCOUNTER 2017-06-25 13:58 | Emergency (ER) | payer OTHER ==
[~2017-06-25] VITALS: Ht 157.5 cm; Wt 59.2 kg
[~2017-06-25 13:58] MED LIST changes: +XIFAXAN550 MG PO
[2017-06-25 14:42] LABS: HEMOGLOBIN 9.6 G/DL (11.9-15.5); MCH 37.2 PG (29.0-34.0); MCHC 34.3 G/DL (30.0-36.0); MCV 108.5 FL (83-99); RBC DIS.WIDTH-SD 76.5 % (39-53); RED BLOOD COUNT 2.58 M/uL (3.80-5.20); WHITE BLOOD COUNT 4.7 K/uL (4.1-10.2)
[2017-06-25 14:44] LABS: PLATELET COUNT 57 K/uL (156-360)
[2017-06-25 15:14] LABS: QUANTITATIVE HCG < 4.0 MIU/ML
[2017-06-25 17:32] LABS: ALBUMIN 2.6 G/DL (3.2-4.8); ALKALINE PHOSPHATASE 92 IU/L (3-129); ALT (GPT) 32 IU/L (3-49); AST (GOT) 65 IU/L (2-34); CHLORIDE 102 MEQ/L (99-109); GFR ESTIMATE (CALCULATED) > 59 mL/min/; GLUCOSE 126 mg/dL (70-99); LIPASE 61 U/L (1.0-51.0); POTASSIUM 3.5 MEQ/L (3.7-5.4); SODIUM 130 MEQ/L (136-147); TOTAL BILIRUBIN 3.2 MG/DL (0.0-1.0); TOTAL PROTEIN 7.2 G/DL (6.4-8.3); UREA NITROGEN (BUN) 15 mg/dL (9-23)
[2017-06-25] MEDS ORDERED: OXAYDO5 MG PO (19:28)
[2017-06-25 19:32] LABS: SERUM ETHYL ALCOHOL 103 mg/dL
[2017-06-25 19:39] VITALS: BP 122/75
== END 2017-06-25 20:10 | disposition home or self-care (01) ==
LOC: EME 13:58
DX: R18.8 Other ascites (principal); K74.60 Unspecified cirrhosis of liver; F32.9 Major depressive disorder, single episode, unspecified; F41.9 Anxiety disorder, unspecified; Z87.891 Personal history of nicotine dependence
CPT/HCPCS: 74019; 76705; 80053; 81003; 82140; 83690; 84702; 85027; 99281; 99284; G0480; J2270

== ENCOUNTER 2017-07-19 09:10 | Inpatient (IN) | payer OTHER ==
[~2017-07-19] VITALS: Ht 157.5 cm; Wt 56.9 kg
[~2017-07-19 09:10] MED LIST changes: +ALDACTONE50 MG PO; +BENTYL10 MG PO; +OXAYDO5 MG PO
[2017-07-19 10:06] LABS: BASOPHIL (%) 0 % (0-1); EOSINOPHIL (%) 0 % (0-5); HEMATOCRIT 20.7 % (36.0-46.0); HEMOGLOBIN 7.3 G/DL (11.9-15.5); IMMATURE GRANULOCYTE (%) 0.5 % (0.0-0.7); LYMPHOCYTE (%) 63.2 % (15-42); LYMPHOCYTE COUNT 1.3 K/uL (1.0-2.8); MCH 39.7 PG (29.0-34.0); MCHC 35.3 G/DL (30.0-36.0); MCV 112.5 FL (83-99); MONOCYTE (%) 18.6 % (3-12); MONOCYTE COUNT 0.4 K/uL (0-0.8); NEUTROPHIL (%) 17.7 % (45-76); NEUTROPHIL COUNT 0.4 K/uL (1.8-6.4); PLATELET COUNT 56 K/uL (156-360); RBC DIS.WIDTH-CV 20.9 % (11.8-14.6); RBC DIS.WIDTH-SD 83.1 % (39-53); RED BLOOD COUNT 1.84 M/uL (3.80-5.20)
[2017-07-19 10:12] LABS: ALBUMIN 2.4 g/dL (3.2-4.8)
[2017-07-19 10:13] LABS: CHLORIDE 99 mEq/L (99-109)
[2017-07-19 10:14] LABS: POTASSIUM 2.8 mEq/L (3.7-5.4); SODIUM 127 mEq/L (136-147)
[2017-07-19 10:15] LABS: GLUCOSE 121 mg/dL (70-99); TOTAL PROTEIN 6.8 g/dL (6.4-8.3)
[2017-07-19 10:17] LABS: TOTAL BILIRUBIN 7.3 mg/dL (0.0-1.0)
[2017-07-19 10:18] LABS: ALKALINE PHOSPHATASE 149 IU/L (3-129)
[2017-07-19 10:19] LABS: CREATININE 0.8 mg/dL (0.6-1.3); GFR ESTIMATE (CALCULATED) > 59 mL/min/
[2017-07-19 10:20] LABS: AST (GOT) 130 IU/L (2-34); UREA NITROGEN (BUN) 21 mg/dL (9-23)
[2017-07-19 10:21] LABS: ALT (GPT) 72 IU/L (3-49)
[2017-07-19 10:22] LABS: LIPASE 93 U/L (1.0-51.0)
[2017-07-19 10:32] LABS: INTER. NORMALIZED RATIO 1.8
[2017-07-19] MEDS ORDERED: CONSTULOSE10 GM/15 M PO (12:43)
[2017-07-19] MEDS ORDERED: CLARITIN10 M3 PO (12:46)
[2017-07-19] MEDS ORDERED: BACTRIM,SEPT1 TABLET PO (12:46)
[2017-07-19 17:54] VITALS: BP 109/53
[2017-07-19 19:28] VITALS: BP 124/61
[2017-07-19 20:48] VITALS: BP 121/59
[2017-07-19 21:07] VITALS: BP 103/61
[2017-07-19 22:12] VITALS: BP 116/67
[2017-07-19 23:12] VITALS: BP 123/59
[2017-07-20] VITALS (11 sets, daily range): BP systolic 102–123; BP diastolic 56–72
[2017-07-20 06:17] LABS: HEMATOCRIT 26.6 % (36.0-46.0); HEMOGLOBIN 9.2 G/DL (11.9-15.5); MCH 36.1 PG (29.0-34.0); MCHC 34.6 G/DL (30.0-36.0); NRBC (%) 0.8 /100 WBC (0-0); RBC DIS.WIDTH-SD 86.3 % (39-53); WHITE BLOOD COUNT 2.6 K/uL (4.1-10.2)
[2017-07-20 06:18] LABS: MCV 104.3 FL (83-99); RED BLOOD COUNT 2.55 M/uL (3.80-5.20)
[2017-07-20 06:36] LABS: ALKALINE PHOSPHATASE 86 IU/L (3-129); ALT (GPT) 47 IU/L (3-49); AST (GOT) 82 IU/L (2-34); CHLORIDE 102 MEQ/L (99-109); CREATININE 0.9 MG/DL (0.6-1.3); GFR ESTIMATE (CALCULATED) > 59 mL/min/; GLUCOSE 102 mg/dL (70-99); SODIUM 129 MEQ/L (136-147); TOTAL BILIRUBIN 8.1 MG/DL (0.0-1.0); TOTAL PROTEIN 5.7 G/DL (6.4-8.3); UREA NITROGEN (BUN) 23 mg/dL (9-23)
[2017-07-20 06:38] LABS: POTASSIUM 3.7 MEQ/L (3.7-5.4)
[2017-07-20 06:59] LABS: IMM.PLATELET FRACTION 1.3 (1-7); PLAT.SUFFICIENCY DECREASED; PLATELET COUNT 46 K/uL (156-360)
[2017-07-21 04:06] VITALS: BP 107/56
[2017-07-21 06:28] LABS: HEMATOCRIT 26.8 % (36.0-46.0); HEMOGLOBIN 9.4 G/DL (11.9-15.5); MCH 36.6 PG (29.0-34.0); MCHC 35.1 G/DL (30.0-36.0); MCV 104.3 FL (83-99); RBC DIS.WIDTH-CV 26.1 % (11.8-14.6); RBC DIS.WIDTH-SD 92.1 % (39-53); RED BLOOD COUNT 2.57 M/uL (3.80-5.20); WHITE BLOOD COUNT 3.1 K/uL (4.1-10.2)
[2017-07-21 07:05] LABS: IMM.PLATELET FRACTION 1.3 (1-7); PLAT.SUFFICIENCY VERY DECREASED; PLATELET COUNT 47 K/uL (156-360)
[2017-07-21 07:49] VITALS: BP 115/67
[2017-07-21 11:06] VITALS: BP 109/59
[2017-07-21] MEDS ORDERED: XIFAXAN550 MG PO (16:23)
[2017-07-21 17:24] VITALS: BP 117/62
[2017-07-21 20:00] VITALS: BP 124/62
== END 2017-07-21 22:28 | disposition home or self-care (01) | DRG 433 ==
LOC: EME 09:10 → 5EAST 14:30 → EDOF 14:30 → ENRESERV 14:56 → 5EAST 17:39
PROVIDERS: Emergency Medicine; Internal Medicine
PROC: 0W9G3ZX Drainage of Peritoneal Cavity, Percutaneous Approach, Diagnostic (ICD-10-PCS; principal; 2017-07-19)
PROC: 0W9G30Z Drainage of Peritoneal Cavity with Drainage Device, Percutaneous Approach (ICD-10-PCS; 2017-07-21)
DX: K70.31 Alcoholic cirrhosis of liver with ascites (principal); D61.818 Other pancytopenia; E87.1 Hypo-osmolality and hyponatremia; F33.9 Major depressive disorder, recurrent, unspecified; Z91.14 Patient's other noncompliance with medication regimen; R32 Unspecified urinary incontinence; I73.9 Peripheral vascular disease, unspecified; F41.9 Anxiety disorder, unspecified; F17.210 Nicotine dependence, cigarettes, uncomplicated; E87.6 Hypokalemia; K70.40 Alcoholic hepatic failure without coma; B18.2 Chronic viral hepatitis C; F10.10 Alcohol abuse, uncomplicated; Z79.51 Long term (current) use of inhaled steroids; Y90.9 Presence of alcohol in blood, level not specified
CPT/HCPCS: 49083; 80053; 82140; 83605; 83690; 85025; 85027; 85610; 86850; 86900; 86901; 86920; J2270; J3480; J7040; P9016

== ENCOUNTER 2017-08-02 08:28 | Inpatient (IN) | payer OTHER ==
[2017-08-02] VITALS (26 sets, daily range): BP systolic 82–139; BP diastolic 39–90
[~2017-08-02] VITALS: Ht 154.9 cm; Wt 73.6 kg
[~2017-08-02 08:28] MED LIST changes: +BACTRIM,SEPT1 TABLET PO; +CLARITIN10 M3 PO; +CONSTULOSE10 GM/15 M PO
[2017-08-02 09:37] LABS: TYPE OF FLUID PARACENTESIS
[2017-08-02 11:08] LABS: INTER. NORMALIZED RATIO 2.4
[2017-08-02 11:12] LABS: ALBUMIN 2.9 g/dL (3.2-4.8); CHLORIDE 102 mEq/L (99-109); POTASSIUM 4.8 mEq/L (3.7-5.4); SODIUM 124 mEq/L (136-147)
[2017-08-02 11:14] LABS: GLUCOSE 101 mg/dL (70-99); TOTAL PROTEIN 4.9 g/dL (6.4-8.3)
[2017-08-02 11:16] LABS: TOTAL BILIRUBIN 5.1 mg/dL (0.0-1.0)
[2017-08-02 11:18] LABS: ALKALINE PHOSPHATASE 55 IU/L (3-129); CREATININE 1.9 mg/dL (0.6-1.3); GFR ESTIMATE (CALCULATED) 30 mL/min/
[2017-08-02 11:19] LABS: UREA NITROGEN (BUN) 74 mg/dL (9-23)
[2017-08-02 11:20] LABS: AST (GOT) 30 IU/L (2-34)
[2017-08-02 11:21] LABS: ALT (GPT) 21 IU/L (3-49); LIPASE 65 U/L (1.0-51.0)
[2017-08-02 11:27] LABS: BODY FLUID EOSINOPHILS 0 % (0-25); BODY FLUID RBC'S 75000 /MM^3 (0-100); BODY FLUID WBC'S 137 /MM^3 (0-500); MONONUCLEAR WBC'S 83 %; POLYNUCLEAR WBC'S 17 % (0-25)
[2017-08-02 11:28] LABS: APPEARANCE CLOUDY/BLOODY
[2017-08-02 11:55] LABS: HEMATOCRIT 8.4 % (36.0-46.0); HEMOGLOBIN 2.9 G/DL (11.9-15.5); MCH 38.2 PG (29.0-34.0); MCHC 34.5 G/DL (30.0-36.0); MCV 110.5 FL (83-99); RBC DIS.WIDTH-CV 24.8 % (11.8-14.6); RBC DIS.WIDTH-SD 94.3 % (39-53); RED BLOOD COUNT 0.76 M/uL (3.80-5.20); WHITE BLOOD COUNT 8.2 K/uL (4.1-10.2)
[2017-08-02 12:27] LABS: ANISOCYTOSIS 3+; BASOPHIL (%) 0 % (0-1); EOSINOPHIL (%) 0 % (0-5); LYMPHOCYTE (%) 27.6 % (15-42); LYMPHOCYTE COUNT 2.3 K/uL (1.0-2.8); MACROCYTES 2+; MONOCYTE (%) 14.5 % (3-12); MONOCYTE COUNT 1.2 K/uL (0-0.8); NEUTROPHIL (%) 56.9 % (45-76); NEUTROPHIL COUNT 4.7 K/uL (1.8-6.4); POLYCHROMASIA 2+
[2017-08-02 12:42] LABS: PLATELET COUNT 67 K/uL (156-360)
[2017-08-02 15:50] LABS: APPEARANCE SL.HAZY ((CLEAR)); BILIRUBIN NEGATIVE; BLOOD NEGATIVE; COLOR AMBER ((YELLOW)); GLUCOSE (STRIP) NEGATIVE; KETONES NEGATIVE; LEUKOCYTES NEGATIVE; NITRITE NEGATIVE; PROTEIN (STRIP) NEGATIVE; SPECIFIC GRAVITY 1.015 (1.000-1.030)
[2017-08-02 16:12] LABS: BACTERIA NONE SEEN /HPF; EPITHELIAL CELLS RARE /HPF; HYALINE CASTS 30-40 /LPF; MUCUS TRACE /LPF; RED BLOOD CELLS 0-5 /HPF (0-5); WHITE BLOOD CELLS 0-5 /HPF (0-5)
[2017-08-02 16:20] LABS: HEMATOCRIT 23.3 % (36.0-46.0); HEMOGLOBIN 7.9 G/DL (11.9-15.5); MCH 30.9 PG (29.0-34.0); MCHC 33.9 G/DL (30.0-36.0); PLATELET COUNT 59 K/uL (156-360); RBC DIS.WIDTH-CV 18.6 % (11.8-14.6); RBC DIS.WIDTH-SD 45.2 % (39-53); RED BLOOD COUNT 2.56 M/uL (3.80-5.20); WHITE BLOOD COUNT 6.1 K/uL (4.1-10.2)
[2017-08-02 16:29] LABS: ALBUMIN 2.7 G/DL (3.2-4.8); ALKALINE PHOSPHATASE 46 IU/L (3-129); ALT (GPT) 18 IU/L (3-49); AST (GOT) 28 IU/L (2-34); CHLORIDE 107 MEQ/L (99-109); CREATININE 1.6 MG/DL (0.6-1.3); GFR ESTIMATE (CALCULATED) 36 mL/min/; GLUCOSE 125 mg/dL (70-99); MAGNESIUM 1.5 mg/dl (1.3-2.7); PHOSPHORUS 4.8 mg/dL (2.5-4.9); POTASSIUM 4.6 MEQ/L (3.7-5.4); SODIUM 127 MEQ/L (136-147); TOTAL BILIRUBIN 6.9 MG/DL (0.0-1.0); TOTAL PROTEIN 4.9 G/DL (6.4-8.3); UREA NITROGEN (BUN) 63 mg/dL (9-23)
[2017-08-02 21:34] LABS: ALBUMIN 2.9 G/DL (3.2-4.8); ALKALINE PHOSPHATASE 38 IU/L (3-129); ALT (GPT) 15 IU/L (3-49); AST (GOT) 24 IU/L (2-34); CHLORIDE 105 MEQ/L (99-109); CREATININE 1.6 MG/DL (0.6-1.3); GFR ESTIMATE (CALCULATED) 36 mL/min/; GLUCOSE 163 mg/dL (70-99); MAGNESIUM 1.4 mg/dl (1.3-2.7); PHOSPHORUS 4.4 mg/dL (2.5-4.9); POTASSIUM 4.1 MEQ/L (3.7-5.4); SODIUM 127 MEQ/L (136-147); TOTAL BILIRUBIN 6.7 MG/DL (0.0-1.0); TOTAL PROTEIN 4.9 G/DL (6.4-8.3); UREA NITROGEN (BUN) 63 mg/dL (9-23)
[2017-08-02 21:54] LABS: HEMATOCRIT 22.5 % (36.0-46.0); HEMOGLOBIN 7.7 G/DL (11.9-15.5); MCH 30.6 PG (29.0-34.0); MCHC 34.2 G/DL (30.0-36.0); MCV 89.3 FL (83-99); RBC DIS.WIDTH-SD 48.9 % (39-53); RED BLOOD COUNT 2.52 M/uL (3.80-5.20); WHITE BLOOD COUNT 5.4 K/uL (4.1-10.2)
[2017-08-02 22:09] LABS: IMM.PLATELET FRACTION 1.9 (1-7); PLAT.SUFFICIENCY VERY DECREASED; PLATELET COUNT 31 K/uL (156-360)
[2017-08-03] VITALS (28 sets, daily range): BP systolic 82–113; BP diastolic 43–69
[2017-08-03 00:20] LABS: CARBOXY HGB 1.4 % (0-5); COMMENTS - BLOOD GASES A+C+; DEVICE VENT; FI02 80 %; MECHANICAL RATE 20 resp/min; METHEMOGLOBIN 1.5 % (0-1.5); MODE A/C; PCO2 < 19 mm Hg (35-45); PEEP 5 CM/H20; PO2 415 mm Hg (80-100); SITE RR; TIDAL VOLUME 400 ML; TOTAL RESP RATE 26 resp/min; pH 7.49 (7.35-7.45)
[2017-08-03 04:34] LABS: BICARBONATE 16.8 mEq/L (22-26); CARBOXY HGB 1.8 % (0-5); DEVICE 980; FI02 30 %; MECHANICAL RATE 20 resp/min; METHEMOGLOBIN 1.7 % (0-1.5); MODE AC/VC+; PCO2 21 mm Hg (35-45); PO2 98 mm Hg (80-100); SITE RR; pH 7.51 (7.35-7.45)
[2017-08-03 04:35] LABS: INSPIRATION TIME 0.9 seconds; PEEP 5 CM/H20; TIDAL VOLUME 500 ML; TOTAL RESP RATE 20 resp/min
[2017-08-03 05:29] LABS: MCH 30.8 PG (29.0-34.0); MCV 85.6 FL (83-99); RBC DIS.WIDTH-CV 18.7 % (11.8-14.6); RED BLOOD COUNT 2.92 M/uL (3.80-5.20); WHITE BLOOD COUNT 4.6 K/uL (4.1-10.2)
[2017-08-03 05:35] LABS: ALBUMIN 2.9 G/DL (3.2-4.8); ALKALINE PHOSPHATASE 39 IU/L (3-129); ALT (GPT) 16 IU/L (3-49); AST (GOT) 27 IU/L (2-34); CHLORIDE 105 MEQ/L (99-109); CREATININE 1.7 MG/DL (0.6-1.3); GFR ESTIMATE (CALCULATED) 34 mL/min/; GLUCOSE 153 mg/dL (70-99); POTASSIUM 3.7 MEQ/L (3.7-5.4); TOTAL BILIRUBIN 6.6 MG/DL (0.0-1.0); TOTAL PROTEIN 4.7 G/DL (6.4-8.3); UREA NITROGEN (BUN) 67 mg/dL (9-23)
[2017-08-03 05:38] LABS: SODIUM 134 MEQ/L (136-147)
[2017-08-03 06:01] LABS: IMM.PLATELET FRACTION 1.4 (1-7); PLAT.SUFFICIENCY VERY DECREASED
[2017-08-03 06:04] LABS: PLATELET COUNT 29 K/uL (156-360)
[2017-08-03 06:52] LABS: INTER. NORMALIZED RATIO 1.8
[2017-08-03 06:54] LABS: PTT 49.3 SEC (25-37)
[2017-08-03 16:04] LABS: CHLORIDE 102 MEQ/L (99-109); CREATININE 1.8 MG/DL (0.6-1.3); GFR ESTIMATE (CALCULATED) 32 mL/min/; GLUCOSE 159 mg/dL (70-99); MAGNESIUM 1.4 mg/dl (1.3-2.7); PHOSPHORUS 2.9 mg/dL (2.5-4.9); POTASSIUM 3.6 MEQ/L (3.7-5.4); SODIUM 136 MEQ/L (136-147); UREA NITROGEN (BUN) 71 mg/dL (9-23)
[2017-08-03 16:23] LABS: BASE EXCESS -0.1 mEq/L (-3 to +3); METHEMOGLOBIN 1.6 % (0-1.5); PCO2 24 mm Hg (35-45); PO2 116 mm Hg (80-100)
[2017-08-03 16:24] LABS: BICARBONATE 21.5 mEq/L (22-26); COMMENTS - BLOOD GASES A+C+; DEVICE 980 PB; FI02 30 %; MODE TC; PEEP 5 CM/H20; SITE RR; TOTAL RESP RATE 19 resp/min; pH 7.56 (7.35-7.45)
[2017-08-03 19:21] LABS: HEMATOCRIT 23.5 % (36.0-46.0); HEMOGLOBIN 8.4 G/DL (11.9-15.5); MCH 31.1 PG (29.0-34.0); MCHC 35.7 G/DL (30.0-36.0); RBC DIS.WIDTH-CV 18.9 % (11.8-14.6); RBC DIS.WIDTH-SD 47.5 % (39-53); WHITE BLOOD COUNT 5.4 K/uL (4.1-10.2)
[2017-08-03 19:57] LABS: HEMATOLOGY COMMENT 1 SN; IMM.PLATELET FRACTION 1.9 (1-7); PLAT.SUFFICIENCY VERY DECREASED; PLATELET COUNT 33 K/uL (156-360)
[2017-08-04] VITALS (23 sets, daily range): BP systolic 9–123; BP diastolic 53–74
[2017-08-04 05:32] LABS: HEMATOCRIT 24.3 % (36.0-46.0); HEMOGLOBIN 8.6 G/DL (11.9-15.5); MCH 30.8 PG (29.0-34.0); MCHC 35.4 G/DL (30.0-36.0); MCV 87.1 FL (83-99); RBC DIS.WIDTH-CV 19.2 % (11.8-14.6); RBC DIS.WIDTH-SD 47.6 % (39-53); RED BLOOD COUNT 2.79 M/uL (3.80-5.20); WHITE BLOOD COUNT 6.3 K/uL (4.1-10.2)
[2017-08-04 05:37] LABS: INTER. NORMALIZED RATIO 1.8
[2017-08-04 05:40] LABS: PTT 47.5 SEC (25-37)
[2017-08-04 06:06] LABS: PLAT.SUFFICIENCY VERY DECREASED
[2017-08-04 06:10] LABS: CHLORIDE 99 MEQ/L (99-109); CREATININE 1.7 MG/DL (0.6-1.3); GFR ESTIMATE (CALCULATED) 34 mL/min/; GLUCOSE 124 mg/dL (70-99); MAGNESIUM 1.2 mg/dl (1.3-2.7); PHOSPHORUS 2.8 mg/dL (2.5-4.9); SODIUM 133 MEQ/L (136-147); UREA NITROGEN (BUN) 63 mg/dL (9-23)
[2017-08-04 06:11] LABS: POTASSIUM 2.7 MEQ/L (3.7-5.4)
[2017-08-04 06:17] LABS: PLATELET COUNT 33 K/uL (156-360)
[2017-08-05] VITALS (11 sets, daily range): BP systolic 99–122; BP diastolic 55–68
[2017-08-05 18:53] LABS: HEMATOCRIT 27.5 % (36.0-46.0); HEMOGLOBIN 9.6 G/DL (11.9-15.5); MCH 32.3 PG (29.0-34.0); MCHC 34.9 G/DL (30.0-36.0); RBC DIS.WIDTH-CV 19.9 % (11.8-14.6); RBC DIS.WIDTH-SD 53.9 % (39-53); RED BLOOD COUNT 2.97 M/uL (3.80-5.20); WHITE BLOOD COUNT 5.4 K/uL (4.1-10.2)
[2017-08-05 18:57] LABS: MCV 92.6 FL (83-99)
[2017-08-05 19:06] LABS: IMM.PLATELET FRACTION 2.7 (1-7); PLAT.SUFFICIENCY VERY DECREASED; PLATELET COUNT 31 K/uL (156-360)
[2017-08-05 19:12] LABS: CHLORIDE 97 MEQ/L (99-109); GLUCOSE 146 mg/dL (70-99); SODIUM 129 MEQ/L (136-147); UREA NITROGEN (BUN) 44 mg/dL (9-23)
[2017-08-05 19:17] LABS: GFR ESTIMATE (CALCULATED) > 59 mL/min/; POTASSIUM 3.4 MEQ/L (3.7-5.4)
[2017-08-06 01:00] VITALS: BP 106/55
[2017-08-06 03:25] VITALS: BP 103/53
[2017-08-06 05:25] LABS: BASOPHIL (%) 0.2 % (0-1); EOSINOPHIL (%) 0 % (0-5); HEMATOCRIT 28.1 % (36.0-46.0); HEMOGLOBIN 9.2 G/DL (11.9-15.5); IMMATURE GRANULOCYTE (%) 0.3 % (0.0-0.7); LYMPHOCYTE (%) 26.8 % (15-42); LYMPHOCYTE COUNT 1.7 K/uL (1.0-2.8); MCH 30.6 PG (29.0-34.0); MCHC 32.7 G/DL (30.0-36.0); MCV 93.4 FL (83-99); MONOCYTE (%) 23.7 % (3-12); MONOCYTE COUNT 1.5 K/uL (0-0.8); RBC DIS.WIDTH-CV 19.9 % (11.8-14.6); RBC DIS.WIDTH-SD 56.9 % (39-53); RED BLOOD COUNT 3.01 M/uL (3.80-5.20); WHITE BLOOD COUNT 6.2 K/uL (4.1-10.2)
[2017-08-06 05:53] LABS: ALBUMIN 2.7 G/DL (3.2-4.8); ALKALINE PHOSPHATASE 44 IU/L (3-129); ALT (GPT) 17 IU/L (3-49); AST (GOT) 28 IU/L (2-34); CHLORIDE 96 MEQ/L (99-109); CREATININE 1.1 MG/DL (0.6-1.3); GFR ESTIMATE (CALCULATED) 56 mL/min/; GLUCOSE 130 mg/dL (70-99); SODIUM 129 MEQ/L (136-147); TOTAL PROTEIN 4.7 G/DL (6.4-8.3); UREA NITROGEN (BUN) 45 mg/dL (9-23)
[2017-08-06 05:54] LABS: POTASSIUM 4.3 MEQ/L (3.7-5.4); TOTAL BILIRUBIN 3.7 MG/DL (0.0-1.0)
[2017-08-06 05:58] LABS: IMM.PLATELET FRACTION 3.1 (1-7); PLAT.SUFFICIENCY DECREASED; PLATELET COUNT 35 K/uL (156-360)
[2017-08-06 09:30] VITALS: BP 95/51
[2017-08-06 11:14] VITALS: BP 110/59
[2017-08-06 15:32] VITALS: BP 114/57
[2017-08-06 20:05] VITALS: BP 123/69
[2017-08-07] VITALS (7 sets, daily range): BP systolic 81–113; BP diastolic 45–60
[2017-08-07 15:22] LABS: STOOL OCCULT BLD 1ST SPECIMEN POSITIVE
[2017-08-07 19:01] LABS: BASOPHIL (%) 0 % (0-1); EOSINOPHIL (%) 0 % (0-5); HEMATOCRIT 21.8 % (36.0-46.0); HEMOGLOBIN 7.3 G/DL (11.9-15.5); IMMATURE GRANULOCYTE (%) 0.3 % (0.0-0.7); LYMPHOCYTE (%) 31.5 % (15-42); LYMPHOCYTE COUNT 1.9 K/uL (1.0-2.8); MCH 32.2 PG (29.0-34.0); MCHC 33.5 G/DL (30.0-36.0); MONOCYTE (%) 18.2 % (3-12); MONOCYTE COUNT 1.1 K/uL (0-0.8); RBC DIS.WIDTH-CV 19.9 % (11.8-14.6); RBC DIS.WIDTH-SD 58.6 % (39-53)
[2017-08-07 19:05] LABS: RED BLOOD COUNT 2.27 M/uL (3.80-5.20)
[2017-08-07 19:06] LABS: INTER. NORMALIZED RATIO 1.8
[2017-08-07 19:08] LABS: PTT 57.5 SEC (25-37)
[2017-08-07 19:11] LABS: CHLORIDE 97 MEQ/L (99-109); SODIUM 128 MEQ/L (136-147)
[2017-08-07 19:16] LABS: CREATININE 1.1 MG/DL (0.6-1.3); GFR ESTIMATE (CALCULATED) 56 mL/min/; GLUCOSE 159 mg/dL (70-99); UREA NITROGEN (BUN) 51 mg/dL (9-23)
[2017-08-07 19:52] LABS: HEMATOLOGY COMMENT 1 SN; IMM.PLATELET FRACTION 3.1 (1-7); PLAT.SUFFICIENCY VERY DECREASED; PLATELET COUNT 31 K/uL (156-360)
[2017-08-08] VITALS (13 sets, daily range): BP systolic 96–120; BP diastolic 50–66
[2017-08-08 06:18] LABS: BASOPHIL (%) 0.1 % (0-1); EOSINOPHIL (%) 0 % (0-5); HEMATOCRIT 28.8 % (36.0-46.0); IMMATURE GRANULOCYTE (%) 0.4 % (0.0-0.7); LYMPHOCYTE (%) 29.9 % (15-42); LYMPHOCYTE COUNT 2.2 K/uL (1.0-2.8); MCH 30.5 PG (29.0-34.0); MCHC 34.4 G/DL (30.0-36.0); MONOCYTE (%) 19.5 % (3-12); MONOCYTE COUNT 1.4 K/uL (0-0.8); NEUTROPHIL (%) 50.1 % (45-76); NEUTROPHIL COUNT 3.6 K/uL (1.8-6.4); RBC DIS.WIDTH-CV 19.9 % (11.8-14.6); RBC DIS.WIDTH-SD 52.9 % (39-53); WHITE BLOOD COUNT 7.2 K/uL (4.1-10.2)
[2017-08-08 06:19] LABS: HEMOGLOBIN 9.9 G/DL (11.9-15.5); MCV 88.6 FL (83-99); RED BLOOD COUNT 3.25 M/uL (3.80-5.20)
[2017-08-08 06:35] LABS: IMM.PLATELET FRACTION 3.6 (1-7); PLAT.SUFFICIENCY VERY DECREASED; PLATELET COUNT 30 K/uL (156-360)
[2017-08-08 07:20] LABS: ALBUMIN 2.4 G/DL (3.2-4.8); ALKALINE PHOSPHATASE 43 IU/L (3-129); ALT (GPT) 13 IU/L (3-49); AST (GOT) 23 IU/L (2-34); CHLORIDE 97 MEQ/L (99-109); CREATININE 0.9 MG/DL (0.6-1.3); GFR ESTIMATE (CALCULATED) > 59 mL/min/; SODIUM 127 MEQ/L (136-147); TOTAL PROTEIN 4.2 G/DL (6.4-8.3); UREA NITROGEN (BUN) 43 mg/dL (9-23)
[2017-08-08 07:26] LABS: GLUCOSE 119 mg/dL (70-99); TOTAL BILIRUBIN 5.8 MG/DL (0.0-1.0)
[2017-08-08 13:02] LABS: HEMATOCRIT 28.8 % (36.0-46.0)
[2017-08-09] VITALS (11 sets, daily range): BP systolic 94–121; BP diastolic 54–59
[2017-08-09 05:36] LABS: INTER. NORMALIZED RATIO 1.3
[2017-08-09 05:39] LABS: PTT 40.6 SEC (25-37)
[2017-08-09 06:03] LABS: BASOPHIL (%) 0.2 % (0-1); EOSINOPHIL (%) 0 % (0-5); HEMATOCRIT 23.4 % (36.0-46.0); IMMATURE GRANULOCYTE (%) 0.2 % (0.0-0.7); LYMPHOCYTE COUNT 1.5 K/uL (1.0-2.8); MCH 29.9 PG (29.0-34.0); MCHC 33.8 G/DL (30.0-36.0); MCV 88.6 FL (83-99); MONOCYTE (%) 17.3 % (3-12); MONOCYTE COUNT 0.9 K/uL (0-0.8); NEUTROPHIL (%) 52.3 % (45-76); NEUTROPHIL COUNT 2.6 K/uL (1.8-6.4); RBC DIS.WIDTH-CV 20.9 % (11.8-14.6); RBC DIS.WIDTH-SD 56.2 % (39-53); RED BLOOD COUNT 2.64 M/uL (3.80-5.20)
[2017-08-09 06:04] LABS: HEMOGLOBIN 7.9 G/DL (11.9-15.5); PLATELET COUNT 67 K/uL (156-360)
[2017-08-09 06:49] LABS: ALBUMIN 2.5 G/DL (3.2-4.8); ALKALINE PHOSPHATASE 46 IU/L (3-129); ALT (GPT) 13 IU/L (3-49); AST (GOT) 20 IU/L (2-34); CHLORIDE 99 MEQ/L (99-109); CREATININE 0.6 MG/DL (0.6-1.3); GFR ESTIMATE (CALCULATED) > 59 mL/min/; GLUCOSE 109 mg/dL (70-99); POTASSIUM 3.6 MEQ/L (3.7-5.4); SODIUM 130 MEQ/L (136-147); TOTAL PROTEIN 4.6 G/DL (6.4-8.3); UREA NITROGEN (BUN) 31 mg/dL (9-23)
[2017-08-09 06:51] LABS: TOTAL BILIRUBIN 3.5 MG/DL (0.0-1.0)
[2017-08-09 11:53] LABS: HEMATOCRIT 24.9 % (36.0-46.0); HEMOGLOBIN 8.6 G/DL (11.9-15.5); MCV 90.9 FL (83-99)
[2017-08-10 04:00] VITALS: BP 118/59
[2017-08-10 04:51] LABS: BASOPHIL (%) 0 % (0-1); EOSINOPHIL (%) 0 % (0-5); HEMATOCRIT 25.1 % (36.0-46.0); HEMOGLOBIN 8.6 G/DL (11.9-15.5); IMMATURE GRANULOCYTE (%) 0.4 % (0.0-0.7); LYMPHOCYTE (%) 34.4 % (15-42); LYMPHOCYTE COUNT 1.6 K/uL (1.0-2.8); MCH 31.2 PG (29.0-34.0); MCHC 34.3 G/DL (30.0-36.0); MCV 90.9 FL (83-99); MONOCYTE (%) 13.9 % (3-12); MONOCYTE COUNT 0.6 K/uL (0-0.8); NEUTROPHIL (%) 51.3 % (45-76); NEUTROPHIL COUNT 2.4 K/uL (1.8-6.4); PLATELET COUNT 54 K/uL (156-360); RBC DIS.WIDTH-CV 20.7 % (11.8-14.6); RBC DIS.WIDTH-SD 58.6 % (39-53); RED BLOOD COUNT 2.76 M/uL (3.80-5.20); WHITE BLOOD COUNT 4.6 K/uL (4.1-10.2)
[2017-08-10 04:58] LABS: ALBUMIN 2.5 g/dL (3.2-4.8); CHLORIDE 102 mEq/L (99-109); POTASSIUM 3.7 mEq/L (3.7-5.4); SODIUM 133 mEq/L (136-147)
[2017-08-10 05:01] LABS: GLUCOSE 132 mg/dL (70-99); TOTAL PROTEIN 4.4 g/dL (6.4-8.3)
[2017-08-10 05:02] LABS: TOTAL BILIRUBIN 3.3 mg/dL (0.0-1.0)
[2017-08-10 05:04] LABS: ALKALINE PHOSPHATASE 54 IU/L (3-129); CREATININE 0.7 mg/dL (0.6-1.3); GFR ESTIMATE (CALCULATED) > 59 mL/min/
[2017-08-10 05:05] LABS: UREA NITROGEN (BUN) 21 mg/dL (9-23)
[2017-08-10 05:06] LABS: AST (GOT) 23 IU/L (2-34)
[2017-08-10 05:07] LABS: ALT (GPT) 16 IU/L (3-49)
[2017-08-10 08:57] VITALS: BP 111/62
[2017-08-10 12:19] VITALS: BP 119/56
[2017-08-10 15:44] VITALS: BP 109/59
[2017-08-10 19:48] VITALS: BP 107/53
[2017-08-11 00:18] VITALS: BP 99/54
[2017-08-11 05:10] VITALS: BP 98/51
[2017-08-11 05:51] LABS: ALBUMIN 2.3 g/dL (3.2-4.8); CHLORIDE 104 mEq/L (99-109); POTASSIUM 3.8 mEq/L (3.7-5.4); SODIUM 133 mEq/L (136-147)
[2017-08-11 05:52] LABS: BASOPHIL (%) 0.2 % (0-1); EOSINOPHIL (%) 0 % (0-5); HEMATOCRIT 25.9 % (36.0-46.0); HEMOGLOBIN 8.7 G/DL (11.9-15.5); IMMATURE GRANULOCYTE (%) 0.3 % (0.0-0.7); LYMPHOCYTE (%) 30.3 % (15-42); LYMPHOCYTE COUNT 1.8 K/uL (1.0-2.8); MCH 30.7 PG (29.0-34.0); MCHC 33.6 G/DL (30.0-36.0); MCV 91.5 FL (83-99); MONOCYTE (%) 13.4 % (3-12); MONOCYTE COUNT 0.8 K/uL (0-0.8); NEUTROPHIL (%) 55.8 % (45-76); NEUTROPHIL COUNT 3.3 K/uL (1.8-6.4); RBC DIS.WIDTH-CV 20.3 % (11.8-14.6); RBC DIS.WIDTH-SD 59.6 % (39-53); RED BLOOD COUNT 2.83 M/uL (3.80-5.20)
[2017-08-11 05:53] LABS: GLUCOSE 120 mg/dL (70-99); TOTAL PROTEIN 4.1 g/dL (6.4-8.3)
[2017-08-11 05:55] LABS: TOTAL BILIRUBIN 2.9 mg/dL (0.0-1.0)
[2017-08-11 05:57] LABS: ALKALINE PHOSPHATASE 67 IU/L (3-129); CREATININE 0.7 mg/dL (0.6-1.3); GFR ESTIMATE (CALCULATED) > 59 mL/min/
[2017-08-11 05:58] LABS: UREA NITROGEN (BUN) 17 mg/dL (9-23)
[2017-08-11 05:59] LABS: AST (GOT) 27 IU/L (2-34)
[2017-08-11 06:00] LABS: ALT (GPT) 17 IU/L (3-49)
[2017-08-11 07:16] LABS: ANISOCYTOSIS 1+; MACROCYTES 1+; PLAT.SUFFICIENCY DECREASED; PLATELET COUNT 49 K/uL (156-360)
[2017-08-11 09:00] VITALS: BP 102/56
[2017-08-11 09:30] LABS: TYPE OF FLUID PARACENTESIS
[2017-08-11 10:26] LABS: APPEARANCE SL. HAZY-YELLOW; BODY FLUID EOSINOPHILS 0 % (0-25); BODY FLUID RBC'S 1000 /MM^3 (0-100); BODY FLUID WBC'S 96 /MM^3 (0-500); MONONUCLEAR WBC'S 81 %; POLYNUCLEAR WBC'S 19 % (0-25)
[2017-08-11 12:00] VITALS: BP 108/55
[2017-08-11 16:27] VITALS: BP 105/51
[2017-08-11 20:24] VITALS: BP 106/59
[2017-08-12] VITALS (7 sets, daily range): BP systolic 104–116; BP diastolic 58–62
[2017-08-12 06:42] LABS: BASOPHIL (%) 0.4 % (0-1); EOSINOPHIL (%) 0 % (0-5); HEMATOCRIT 27.7 % (36.0-46.0); HEMOGLOBIN 9.4 G/DL (11.9-15.5); IMMATURE GRANULOCYTE (%) 0.4 % (0.0-0.7); LYMPHOCYTE (%) 17.7 % (15-42); LYMPHOCYTE COUNT 1.8 K/uL (1.0-2.8); MCH 31.5 PG (29.0-34.0); MCHC 33.9 G/DL (30.0-36.0); MONOCYTE COUNT 1.1 K/uL (0-0.8); NEUTROPHIL (%) 70.5 % (45-76); PLATELET COUNT 51 K/uL (156-360); RBC DIS.WIDTH-CV 20.5 % (11.8-14.6); RBC DIS.WIDTH-SD 63.1 % (39-53); RED BLOOD COUNT 2.98 M/uL (3.80-5.20); WHITE BLOOD COUNT 9.9 K/uL (4.1-10.2)
[2017-08-12 06:58] LABS: CHLORIDE 103 MEQ/L (99-109); CREATININE 0.8 MG/DL (0.6-1.3); GFR ESTIMATE (CALCULATED) > 59 mL/min/; GLUCOSE 148 mg/dL (70-99); POTASSIUM 3.5 MEQ/L (3.7-5.4); SODIUM 132 MEQ/L (136-147); UREA NITROGEN (BUN) 15 mg/dL (9-23)
[2017-08-13 04:00] VITALS: BP 108/55
[2017-08-13 07:28] VITALS: BP 103/57
[2017-08-13 07:36] LABS: HEMATOCRIT 27.8 % (36.0-46.0); HEMOGLOBIN 9.5 G/DL (11.9-15.5); MCH 31.1 PG (29.0-34.0); MCHC 34.2 G/DL (30.0-36.0); MCV 91.1 FL (83-99); PLATELET COUNT 52 K/uL (156-360); RBC DIS.WIDTH-CV 20.6 % (11.8-14.6); RBC DIS.WIDTH-SD 62.8 % (39-53); RED BLOOD COUNT 3.05 M/uL (3.80-5.20); WHITE BLOOD COUNT 12.2 K/uL (4.1-10.2)
[2017-08-13 07:52] LABS: ALBUMIN 2.2 G/DL (3.2-4.8); CHLORIDE 101 MEQ/L (99-109); GFR ESTIMATE (CALCULATED) > 59 mL/min/; GLUCOSE 132 mg/dL (70-99); PHOSPHORUS 2.7 mg/dL (2.5-4.9); POTASSIUM 3.6 MEQ/L (3.7-5.4); SODIUM 129 MEQ/L (136-147); UREA NITROGEN (BUN) 17 mg/dL (9-23)
[2017-08-13 11:19] VITALS: BP 109/56
[2017-08-13 15:16] VITALS: BP 107/55
[2017-08-13 19:38] VITALS: BP 119/58
[2017-08-14 00:20] VITALS: BP 118/54
[2017-08-14 07:29] VITALS: BP 109/58
[2017-08-14 16:50] VITALS: BP 107/58
[2017-08-14 17:56] LABS: C DIFF TOXIN POSITIVE (NEGATIVE)
[2017-08-14 23:48] VITALS: BP 110/66
[2017-08-15 06:02] LABS: BASOPHIL (%) 0.4 % (0-1); BASOPHIL COUNT 0.1 K/uL (0-0.1); EOSINOPHIL (%) 0 % (0-5); HEMATOCRIT 26.3 % (36.0-46.0); IMMATURE GRANULOCYTE (%) 0.5 % (0.0-0.7); LYMPHOCYTE (%) 20.1 % (15-42); LYMPHOCYTE COUNT 3.8 K/uL (1.0-2.8); MCH 30.8 PG (29.0-34.0); MCHC 34.2 G/DL (30.0-36.0); MCV 90.1 FL (83-99); MONOCYTE (%) 9.4 % (3-12); MONOCYTE COUNT 1.8 K/uL (0-0.8); NEUTROPHIL (%) 69.6 % (45-76); NEUTROPHIL COUNT 13.3 K/uL (1.8-6.4); RBC DIS.WIDTH-CV 21.2 % (11.8-14.6); RBC DIS.WIDTH-SD 67.3 % (39-53); RED BLOOD COUNT 2.92 M/uL (3.80-5.20); WHITE BLOOD COUNT 19.1 K/uL (4.1-10.2)
[2017-08-15 06:06] LABS: PLATELET COUNT 68 K/uL (156-360)
[2017-08-15 06:11] LABS: CHLORIDE 100 MEQ/L (99-109); CREATININE 1.3 MG/DL (0.6-1.3); GFR ESTIMATE (CALCULATED) 46 mL/min/; GLUCOSE 123 mg/dL (70-99); SODIUM 127 MEQ/L (136-147); UREA NITROGEN (BUN) 22 mg/dL (9-23)
[2017-08-15 07:10] VITALS: BP 107/59
[2017-08-15 16:05] VITALS: BP 110/60
[2017-08-15 23:32] VITALS: BP 115/63
[2017-08-16 06:55] VITALS: BP 110/60
[2017-08-16 09:23] LABS: CHLORIDE 99 MEQ/L (99-109); CREATININE 1.2 MG/DL (0.6-1.3); GFR ESTIMATE (CALCULATED) 51 mL/min/; GLUCOSE 123 mg/dL (70-99); POTASSIUM 3.4 MEQ/L (3.7-5.4); SODIUM 125 MEQ/L (136-147); UREA NITROGEN (BUN) 24 mg/dL (9-23)
[2017-08-16 15:20] VITALS: BP 110/70
[2017-08-17 00:50] VITALS: BP 114/61
[2017-08-17 07:24] VITALS: BP 108/58
[2017-08-17 07:39] LABS: BASOPHIL (%) 0.3 % (0-1); BASOPHIL COUNT 0.1 K/uL (0-0.1); EOSINOPHIL (%) 0 % (0-5); HEMOGLOBIN 9.1 G/DL (11.9-15.5); IMMATURE GRANULOCYTE (%) 0.8 % (0.0-0.7); LYMPHOCYTE (%) 19.1 % (15-42); LYMPHOCYTE COUNT 2.8 K/uL (1.0-2.8); MCH 31.5 PG (29.0-34.0); MONOCYTE (%) 13.8 % (3-12); NEUTROPHIL COUNT 9.5 K/uL (1.8-6.4); PLATELET COUNT 78 K/uL (156-360); RBC DIS.WIDTH-CV 21.3 % (11.8-14.6); RBC DIS.WIDTH-SD 69.6 % (39-53); RED BLOOD COUNT 2.89 M/uL (3.80-5.20); WHITE BLOOD COUNT 14.5 K/uL (4.1-10.2)
[2017-08-17 08:03] LABS: ALBUMIN 2.2 G/DL (3.2-4.8); ALKALINE PHOSPHATASE 102 IU/L (3-129); ALT (GPT) 34 IU/L (3-49); AST (GOT) 53 IU/L (2-34); CHLORIDE 97 MEQ/L (99-109); CREATININE 1.2 MG/DL (0.6-1.3); GFR ESTIMATE (CALCULATED) 51 mL/min/; GLUCOSE 108 mg/dL (70-99); POTASSIUM 3.4 MEQ/L (3.7-5.4); SODIUM 122 MEQ/L (136-147); TOTAL BILIRUBIN 3.4 MG/DL (0.0-1.0); TOTAL PROTEIN 4.7 G/DL (6.4-8.3); UREA NITROGEN (BUN) 24 mg/dL (9-23)
[2017-08-17 23:40] VITALS: BP 106/56
[2017-08-18 07:26] LABS: CHLORIDE 102 MEQ/L (99-109); CREATININE 1.1 MG/DL (0.6-1.3); GFR ESTIMATE (CALCULATED) 56 mL/min/; GLUCOSE 130 mg/dL (70-99); POTASSIUM 3.8 MEQ/L (3.7-5.4); SODIUM 127 MEQ/L (136-147); UREA NITROGEN (BUN) 22 mg/dL (9-23)
[2017-08-18 07:58] VITALS: BP 98/52
[2017-08-18 16:26] VITALS: BP 92/48
[2017-08-19 00:26] VITALS: BP 105/53
[2017-08-19 07:35] VITALS: BP 102/60
[2017-08-19 16:29] VITALS: BP 98/60
[2017-08-20 00:13] VITALS: BP 114/56
[2017-08-20 07:40] VITALS: BP 100/60
[2017-08-20 16:41] VITALS: BP 102/66
[2017-08-21] VITALS: BP 112/68
[2017-08-21 08:13] VITALS: BP 95/54
[2017-08-21] MEDS ORDERED: ALDACTONE100 MG PO (14:19)
[2017-08-21] MEDS ORDERED: MORPHINE S10 MG/5 ML PO (14:19)
[2017-08-21] MEDS ORDERED: OXYCODONE HCL5 MG PO (14:19)
[2017-08-21 16:00] VITALS: BP 94/51
[2017-08-22 00:20] VITALS: BP 138/72
[2017-08-22 09:07] VITALS: BP 142/70
== END 2017-08-22 14:45 | DRG 377 ==
LOC: RAD 08:28 → EME 08:28 → 4EAST 12:47 → 2EAST 12:47 → EDOF 12:47 → 4WEST 12:47 → ENRESERV 12:48 → 4WEST 15:07 → ENRESERV 08-05 05:50 → 4EAST 08-05 06:13 → ENRESERV 08-11 16:08 → 4EAST 08-11 16:31 → 2EAST 08-11 17:51
PROVIDERS: Emergency Medicine; Internal Medicine; Internal Medicine Gastroenterology; Specialist; Surgery
PROC: 0BH17EZ Insertion of Endotracheal Airway into Trachea, Via Natural or Artificial Opening (ICD-10-PCS; principal; 2017-08-02)
PROC: 5A1935Z Respiratory Ventilation, Less than 24 Consecutive Hours (ICD-10-PCS; principal; 2017-08-02)
PROC: 30233L1 Transfusion of Nonautologous Fresh Plasma into Peripheral Vein, Percutaneous Approach (ICD-10-PCS; principal; 2017-08-02)
PROC: 0W9G3ZZ Drainage of Peritoneal Cavity, Percutaneous Approach (ICD-10-PCS; principal; 2017-08-02)
PROC: B543ZZA Ultrasonography of Right Jugular Veins, Guidance (ICD-10-PCS; principal; 2017-08-02)
PROC: 05HM33Z Insertion of Infusion Device into Right Internal Jugular Vein, Percutaneous Approach (ICD-10-PCS; principal; 2017-08-02)
PROC: 06L38CZ Occlusion of Esophageal Vein with Extraluminal Device, Via Natural or Artificial Opening Endoscopic (ICD-10-PCS; principal; 2017-08-02)
PROC: 30233N1 Transfusion of Nonautologous Red Blood Cells into Peripheral Vein, Percutaneous Approach (ICD-10-PCS; 2017-08-02)
DX: K92.2 Gastrointestinal hemorrhage, unspecified (principal); I85.11 Secondary esophageal varices with bleeding; K76.6 Portal hypertension; J96.90 Respiratory failure, unspecified, unspecified whether with hypoxia or hypercapnia; N17.9 Acute kidney failure, unspecified; A04.72 Enterocolitis due to Clostridium difficile, not specified as recurrent; B19.21 Unspecified viral hepatitis C with hepatic coma; K56.0 Paralytic ileus; D63.8 Anemia in other chronic diseases classified elsewhere; K72.90 Hepatic failure, unspecified without coma; K70.31 Alcoholic cirrhosis of liver with ascites; E87.1 Hypo-osmolality and hyponatremia; E87.6 Hypokalemia; B18.2 Chronic viral hepatitis C; I73.9 Peripheral vascular disease, unspecified; D61.818 Other pancytopenia; E87.2 Acidosis; K21.9 Gastro-esophageal reflux disease without esophagitis; I10 Essential (primary) hypertension; F10.21 Alcohol dependence, in remission; R04.0 Epistaxis; F17.200 Nicotine dependence, unspecified, uncomplicated; F32.9 Major depressive disorder, single episode, unspecified; Z78.1 Physical restraint status
CPT/HCPCS: 36600; 49083; 71045; 71046; 74018; 74019; 74021; 80048; 80048 91; 80053; 80069; 81003; 82140; 82272; 82330; 82803; 83605; 83690; 83735; 84100; 85014; 85018; 85025; 85027; 85610; 85730; 86850; 86900; 86901; 86920; 87070; 87205; 87493; 87641; 88108; 89051; 93005; 94002; 94003; 94799; 97530 GO; 97530 GP; 99281; 99285; C1751; C9113; J0330; J0696; J1940; J2354; J2405; J2704; J2765; J3010; J3475; J3480; J7030; J7050; J7070; P9016; P9017; P9035; P9047; S0030

== ENCOUNTER 2017-09-30 18:55 | Observation (INO) | payer OTHER ==
[~2017-09-30] VITALS: Ht 157.5 cm; Wt 59.0 kg
[~2017-09-30 18:55] MED LIST changes: +MORPHINE S10 MG/5 ML PO; +OXYCODONE HCL5 MG PO
[2017-09-30 19:48] LABS: BASOPHIL (%) 0.3 % (0-1); EOSINOPHIL (%) 4.5 % (0-5); EOSINOPHIL COUNT 0.2 K/uL (0-0.3); HEMATOCRIT 20.7 % (36.0-46.0); HEMOGLOBIN 7.3 G/DL (11.9-15.5); IMMATURE GRANULOCYTE (%) 0.6 % (0.0-0.7); LYMPHOCYTE (%) 49.9 % (15-42); LYMPHOCYTE COUNT 1.8 K/uL (1.0-2.8); MCH 30.7 PG (29.0-34.0); MCHC 35.3 G/DL (30.0-36.0); MONOCYTE (%) 8.5 % (3-12); MONOCYTE COUNT 0.3 K/uL (0-0.8); NEUTROPHIL (%) 36.2 % (45-76); NEUTROPHIL COUNT 1.3 K/uL (1.8-6.4); RBC DIS.WIDTH-CV 17.1 % (11.8-14.6); RBC DIS.WIDTH-SD 53.3 % (39-53); RED BLOOD COUNT 2.38 M/uL (3.80-5.20); WHITE BLOOD COUNT 3.5 K/uL (4.1-10.2)
[2017-09-30 19:56] LABS: ALBUMIN 3.8 g/dL (3.2-4.8); CHLORIDE 96 mEq/L (99-109); POTASSIUM 4.4 mEq/L (3.7-5.4); SODIUM 129 mEq/L (136-147)
[2017-09-30 19:58] LABS: GLUCOSE 106 mg/dL (70-99); TOTAL PROTEIN 6.1 g/dL (6.4-8.3)
[2017-09-30 20:02] LABS: ALKALINE PHOSPHATASE 67 IU/L (3-129); CREATININE 2.3 mg/dL (0.6-1.3); GFR ESTIMATE (CALCULATED) 24 mL/min/
[2017-09-30 20:03] LABS: IMM.PLATELET FRACTION 7.9 (1-7); UREA NITROGEN (BUN) 87 mg/dL (9-23)
[2017-09-30 20:04] LABS: AST (GOT) 49 IU/L (2-34)
[2017-09-30 20:05] LABS: ALT (GPT) 27 IU/L (3-49)
[2017-09-30 20:07] LABS: PLATELET COUNT 10 K/uL (156-360)
[2017-09-30] MEDS ORDERED: ARTIFICIAL TEAR15 M1 BOTH EYES (23:09)
[2017-09-30] MEDS ORDERED: TYLENOL650 MG PR (23:10)
[2017-09-30] MEDS ORDERED: DUONEB 2.5-0.5 M3 ML AEROSOL (23:11)
[2017-09-30] MEDS ORDERED: HYOSCYAMINE0.125 M1 SL (23:12)
[2017-09-30] MEDS ORDERED: MORPHINE S10 MG/1 M3 PO (23:17)
[2017-09-30] MEDS ORDERED: HALOPERIDOL5 MG/1 M1 IV (23:18)
[2017-09-30] MEDS ORDERED: ZOFRAN4 MG/2 ML IV (23:20)
[2017-09-30] MEDS ORDERED: MORPHINE 22 MG/1 ML IV (23:20)
[2017-09-30] MEDS ORDERED: HALDOL5 MG/ML IV (23:21)
[2017-09-30] MEDS ORDERED: ATIVAN2 MG/1 ML IV (23:21)
[2017-10-01] VITALS (10 sets, daily range): BP systolic 91–109; BP diastolic 50–69
== END 2017-10-01 18:52 | disposition hospice, home (50) ==
LOC: EME 18:55 → EDOF 10-01 05:32 → 5EAST 10-01 05:32 → EDOF 10-01 05:32 → ENRESERV 10-01 05:34 → 5EAST 10-01 06:21
PROVIDERS: Emergency Medicine
DX: R18.8 Other ascites (principal); K75.9 Inflammatory liver disease, unspecified; Z51.5 Encounter for palliative care; K74.60 Unspecified cirrhosis of liver; Z66 Do not resuscitate; N17.9 Acute kidney failure, unspecified; D69.6 Thrombocytopenia, unspecified; Z53.8 Procedure and treatment not carried out for other reasons
CPT/HCPCS: 80053; 85025 91; 85049; 86850; 86900; 86901; 94760; 94799; 99202; 99281; 99285; G0378; J2270; P9035; P9037

== ENCOUNTER → 2017-10-03 | Outpatient (CLI) | payer OTHER ==
[~2017-10-03] MED LIST changes: +ARTIFICIAL TEAR15 M1 BOTH EYES; +ATIVAN2 MG/1 ML IV; +DUONEB 2.5-0.5 M3 ML AEROSOL; +HALDOL5 MG/ML IV; +HALOPERIDOL5 MG/1 M1 IV; +HYOSCYAMINE0.125 M1 SL; +MORPHINE 22 MG/1 ML IV; +MORPHINE S10 MG/1 M3 PO; +TYLENOL650 MG PR; +ZOFRAN4 MG/2 ML IV
== END | disposition home or self-care (01) ==
LOC: RAD 10:30
PROC: 0W9G3ZZ Drainage of Peritoneal Cavity, Percutaneous Approach (ICD-10-PCS; principal; 2017-10-03)
DX: R18.8 Other ascites (principal); K72.90 Hepatic failure, unspecified without coma
CPT/HCPCS: 49083